=== PATIENT | female | born 1950 | race Caucasian/White ===

== ENCOUNTER 2019-05-29 10:05 | Inpatient (IN) | payer MEDICARE, MEDICAID ==
[~2019-05-29] VITALS: Ht 154.9 cm; Wt 88.5 kg
--- NOTE | 2019-05-29 13:15 | NUR ---
ADMISSION NOTE: Patient brought to [facility] by [facility]. Patient is ambulatory on the unit. Skin check is done and she has a red spot on her upper abdomen where it appears she scratched. Patient is illogical, becomes agitated quickly, slightly pressured speech. In shower doing skin check with Henok and patient starts telling us that she cannot have any more ECT because she is not a drug addict and you cannot get ECT without being a drug addict. When informed that she do not do ECT at this facility she states that we have one in the basement. 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 Upon further questioning, patient states that she had a bee sting. Patient states that she has had so many ECTs that she cannot remember anything. Patient rocks back and forth while she is in her room. Patient is tangential, illogical, flight of ideas, paranoia. Pt. speaks rapidly and has to be interrupted to ask another question. Pt. will not discuss prior suicide attempts or make any statements that will be "used against her later". Patient denies any physical ailments or history.
[2019-05-29] MEDS ORDERED: magnesium hydroxide 30ml (MOM) UD suspension PO PRN (15:55)
[2019-05-29] MEDS ORDERED: acetaminophen 325mg tablet PO PRN (15:55)
[2019-05-29] MEDS ORDERED: loperamide 2mg capsule PO PRN (15:55)
[2019-05-29 17:28] VITALS: BP 145/84
[2019-05-29] MEDS ORDERED: NO HOME MEDS BLADIN (17:55)
[2019-05-29 20:48] VITALS: BP 151/78
--- NOTE | 2019-05-30 01:28 | NUR ---
Nursing Progress Note Legal hold: 5150 Client on voluntary/involuntary status for being gravely disabled Report received from nurse with use of Rodrigo TRIVEDI RN. Why are they here: The patient was admitted from [facility] on a 5150 for gravely disabled. She was initially taken into [facility] crisis because she been becoming increasing unmanageable at home because of her psychotic symptoms. She was barricading the doors. She thought the water was being poisoned. She has been off her psychiatric medications for the past year. She was becoming agitated and abusive towards her daughter. The patient's daughter believed she could not provide the level of care the patient needed. She has a history of schizophrenia since her early 20s. She has been conserved in the past and has had numerous prior psychiatric hospitalizations. Assessment What has happened this shift: The patient was observed up in the dining room and talking rapidly with female peer but made no sense. During the evening assessment she was rocking back and forth rapidly. Her replies to the assessment questions were rapid and very tangential and frequently did not correspond to what was being asked. She denies hearing voices and stated, "It's more of a humming of the wind. I don't know how to describe it. Some areas of my town have gusting winds" When asked if she felt people were watching her at home she stated, "randy" but the rest of her reply was incongruent to what was asked. Her anxiety level appeared to be high but she adamantly refused any medications. S/I, H/I: Denies A/VH: Appears distracted. Sleep: ADL's: Needs prompting Group attendance: NA Were meds taken: NO Any med S/E: NA Mental Status Exam Appearance: Appeared clean and her stated age. She was dressed in green scrubs Eye contact: Intermittent Behavior: Disorganized Speech: very disorganized and tangential, rapid, hyper verbal Mood: anxious Affect: blunted Thought process: Disorganized, delusional Thought Content: Bizarre and difficult to follow what she is trying to relate Cognition: impaired Insight: Poor Judgment: Poor Interventions PRN's used: Refused Therapeutic interventions: One to one with the patient to assess severity of thought disorder and build therapeutic relationship. Encouraged her to take medications. She remains on q 15 minute safety checks Restraints/seclusion/emergency medication: Justification of Continued Inpatient Treatment: The patient remains very thought disordered and has poor insight into her need for treatment and medications. She remains gravely disabled.
[2019-05-30 08:00] VITALS: BP 121/42
--- NOTE | 2019-05-30 16:21 | NUR ---
Nursing Progress Note Legal hold: 5150 Client on voluntary/involuntary status for being gravely disabled Report received from nurse with use of Jamia TRIVEDI RN. Why are they here: The patient was admitted from [facility] on a 5150 for gravely disabled. She was initially taken into [facility] crisis because she been becoming increasing unmanageable at home because of her psychotic symptoms. She was barricading the doors. She thought the water was being poisoned. She has been off her psychiatric medications for the past year. She was becoming agitated and abusive towards her daughter. The patient's daughter believed she could not provide the level of care the patient needed. She has a history of schizophrenia since her early 20s. She has been conserved in the past and has had numerous prior psychiatric hospitalizations. Assessment What has happened this shift: The patient was awake at change of shift. She got up to the group room and having coffee sitting quietly with others, she suddenly stood up and with both hands angrily "flipped off" the entire room muttering something incoherent to herself. She went to her room and was sitting on bed. She later came back and ate breakfast without incident. Twice refused all blood draws stating, "all the blood is in my chart you can get it from there." She has pressured rapid tangential speech and loose associations. Is able to function on unit by coping skills of isolating to room and rocking back and forth when becomes overwhelmed. S/I, H/I: Denies A/VH: Appears distracted. Sleep:None ADL's: Needs prompting Group attendance: yes tried Were meds taken: No orders, no prn's needed Any med S/E: NA Mental Status Exam Appearance: Appeared clean and her stated age. She was dressed in green scrubs Eye contact: Intermittent Behavior: Disorganized Speech: very disorganized and tangential, rapid, hyper verbal Mood: anxious Affect: constricted Thought process: Disorganized Thought Content: Bizarre and difficult to follow what she is trying to relate Cognition: impaired Insight: Poor Judgment: Poor Interventions PRN's used: None Therapeutic interventions: One to one with the patient to assess severity of thought disorder and build therapeutic relationship. Encouraged her to take medications. She remains on q 15 minute safety checks Restraints/seclusion/emergency medication: Justification of Continued Inpatient Treatment: The patient remains very thought disordered and has poor insight into her need for treatment and medications. She remains gravely disabled.
--- NOTE | 2019-05-30 22:00 | NUR ---
Nursing Progress Note Legal hold: 5150 Client on voluntary/involuntary status for being gravely disabled Report received from nurse with use of Rick TRIVEDI RN. Why are they here: The patient was admitted from [facility] on a 5150 for gravely disabled. She was initially taken into [facility] crisis because she been becoming increasing unmanageable at home because of her psychotic symptoms. She was barricading the doors. She thought the water was being poisoned. She has been off her psychiatric medications for the past year. She was becoming agitated and abusive towards her daughter. The patient's daughter believed she could not provide the level of care the patient needed. She has a history of schizophrenia since her early 20s. She has been conserved in the past and has had numerous prior psychiatric hospitalizations. Assessment What has happened this shift: Patient awake at change of shift, walking the grace talking about random things such as the kitchen workers and then moved on to the security guards as she walks by people she never stopped and talked to people directly just made comments as she walked by. She is cooperative for her assessment but refuses her BP being taken saying "They take it everyday, they don't need it." She also reports that it squeezes her arm to tight and she does not like it. 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 She is difficult to keep on topic. Patient had no evening medications. She remained in her room in bed the remainder of the evening. S/I, H/I: Denies A/VH: Appears distracted. Sleep: None ADL's: Needs prompting Group attendance: No groups this shift Were meds taken: No orders, no prn's needed Any med S/E: NA Mental Status Exam Appearance: Clean and well groomed Eye contact: Direct Behavior: Disorganized Speech: Disorganized and tangential, rapid, hyper verbal Mood: Pleasant, friendly Affect: Congruent to mood Thought process: Disorganized Thought Content: Tangential, loose associations, difficult to keep on topic Cognition: Impaired Insight: Poor Judgment: Poor Interventions PRN's used: None Therapeutic interventions: 1:1 with the patient to assess severity of thought disorder and build therapeutic relationship. Encouraged her to take medications. She remains on q 15 minute safety checks Restraints/seclusion/emergency medication: Justification of Continued Inpatient Treatment: The patient remains very thought disordered and has poor insight into her need for treatment and medications. She remains gravely disabled.
[2019-05-31] MEDS: acetaminophen 325mg tablet PO PRN (01:51)
[2019-05-31 08:15] LABS: BASOPHILS % (AUTO) 0.6 % (0-1); EOSINOPHILS # (AUTO) 0.2 X10'3 (0-0.9); HEMATOCRIT 43.5 % (35.0-45.0); HEMOGLOBIN 14.8 g/dl (12.0-16.0); LYMPHOCYTES # (AUTO) 2.6 X10'3 (1.1-4.8); LYMPHOCYTES % (AUTO) 40.6 % (21-51); MEAN CORPUSCULAR HEMOGLOBIN 29.2 PG (27.0-31.0); MEAN CORPUSCULAR HGB CONC 34.1 g/dL (33.0-36.5); MEAN CORPUSCULAR VOLUME 85.7 FL (78-98); MEAN PLATELET VOLUME 9.8 FL (7.4-10.4); MONOCYTES # (AUTO) 0.4 X10'3 (0-0.9); MONOCYTES % (AUTO) 6.5 % (2-12); NEUTROPHILS # (AUTO) 3.2 X10'3 (1.8-7.7); NEUTROPHILS % (AUTO) 49.3 % (42-75); PLATELET COUNT 184 X10'3 (140-440); RED BLOOD COUNT 5.07 X10'6 (4.20-5.60); RED CELL DISTRIBUTION WIDTH 13.3 % (11.5-14.5); WHITE BLOOD COUNT 6.5 X10'3 (4.5-11.0)
[2019-05-31 08:37] LABS: ALANINE AMINOTRANSFERASE 59 U/L (12-78); ALBUMIN 3.8 G/DL (3.4-5.0); ALKALINE PHOSPHATASE 65 IU/L (46-116); ANION GAP 5 (8-16); ASPARTATE AMINO TRANSFERASE 26 U/L (10-37); BILIRUBIN,TOTAL 0.5 MG/DL (0.1-1.0); BLOOD UREA NITROGEN 13 MG/DL (7-18); BUN/CREATININE RATIO 16.9 (6.6-38.0); CALCIUM 8.8 MG/DL (8.5-10.1); CHLORIDE 106 MMOL/L (99-107); CHOL/HDL RATIO 4.3 (0.00-4.99); CHOLESTEROL 208 MG/DL (0-200); CREATININE 0.77 MG/DL (0.40-0.90); GLUCOSE 118 MG/DL (70-104); HDL CHOLESTEROL 48 MG/DL (35-60); LDL CHOLESTEROL 143 MG/DL (50-100); POTASSIUM 3.9 MMOL/L (3.5-5.1); SODIUM 140 MMOL/L (135-145); TOTAL CARBON DIOXIDE 29.1 MMOL/L (24-32); TOTAL PROTEIN 7.7 G/DL (6.4-8.2); TRIGLYCERIDES 130 MG/DL (20-135); eGFR 75 ML/MIN
--- NOTE | 2019-05-31 08:37 | NUR ---
Met with Ct to complete Psychosocial assessment. Ct was disorganized and circumstantial. She was a poor historian. She was cooperative. She reported she wants to return home to her daughter's house in [place]. MARIO Blue Lic # [id number] Addendum: 05/31/19 at 0838 by Stacy Doherty SS Amended: Links added.
[2019-05-31 08:39] LABS: HEMOGLOBIN A1C 5.7 % (4.5-6.2)
--- NOTE | 2019-05-31 11:13 | NUR ---
Sandra from [facility] (ph# [phone]) called for an update on Ct. She was unable to provide any information on Ct's pervious medications. She did report that Ct was going to [facility] in 2017, and did not have records from there. Spoke to Linda's daughter, Mary Jo (ph# [phone], [phone]). Mary Jo reported Ct had been on the following medications at one point in time: lorazapam, haldol, invega, risperdal, benzotropine, and prilosec. She reported she had another list filed away and policy writer could call her back for that list. Attempted to reach her later and both numbers rang without an answer or voicemail. MARIO Blue Lic# [id number]
--- NOTE | 2019-05-31 15:01 | NUR ---
Nursing Progress Note Legal hold: 5150 Client on voluntary/involuntary status for being gravely disabled Report received from nurse with use of SBAR. Why are they here: The patient was admitted from [facility] on a 5150 for gravely disabled. She was initially taken into [facility] crisis because she been becoming increasing unmanageable at home because of her psychotic symptoms. She was barricading the doors. She thought the water was being poisoned. She has been off her psychiatric medications for the past year. She was becoming agitated and abusive towards her daughter. The patient's daughter believed she could not provide the level of care the patient needed. She has a history of schizophrenia since her early 20s. She has been conserved in the past and has had numerous prior psychiatric hospitalizations. Assessment What has happened this shift: Received Pt asleep in bed w/o distress at beginning of shift. Pt got up and went to the group room and had coffee sitting quietly with others. Pt ate breakfast without incident. She made comments about the food not being too good and asked if we could get food from somewhere else. Pt makes loose associations and statements that have no bearing on a question asked of her. Isolated to room for a good portion of the day, yet comes out for meals and snacks. Guarded and resistive when limits set or something is asked of her. Wanted to look at the computer screen when I asked a question in a paranoid manner, as if wanting to see what has been written about her. S/I, H/I: Denies A/VH: Appears distracted. Sleep:None ADL's: Needs prompting Group attendance: yes tried Were meds taken: No standing meds: no prn's needed Any med S/E: NA Mental Status Exam Appearance: Appeared clean and her stated age. She was dressed in green scrubs Eye contact: Intermittent Behavior: Disorganized Speech: very disorganized and tangential Mood: anxious Affect: constricted Thought process: Disorganized Thought Content: Bizarre and difficult to follow Cognition: impaired Insight: Poor Judgment: Poor Interventions PRN's used: None Therapeutic interventions: One to one with the patient to assess severity of thought disorder and build therapeutic relationship. Encouraged her to take medications. She remains on q 15 minute safety checks Restraints/seclusion/emergency medication: Justification of Continued Inpatient Treatment: The patient remains very thought disordered and has poor insight into her need for treatment and medications. She remains gravely disabled.
[2019-05-31 19:00] VITALS: BP 109/79
--- NOTE | 2019-05-31 23:35 | NUR ---
Nursing Progress Note Legal hold: 5150 Client on voluntary/involuntary status for being gravely disabled Report received from nurse with use of Agus TRIVEDI RN. Why are they here: The patient was admitted from [facility] on a 5150 for gravely disabled. She was initially taken into [facility] crisis because she been becoming increasing unmanageable at home because of her psychotic symptoms. She was barricading the doors. She thought the water was being poisoned. She has been off her psychiatric medications for the past year. She was becoming agitated and abusive towards her daughter. The patient's daughter believed she could not provide the level of care the patient needed. She has a history of schizophrenia since her early 20s. She has been conserved in the past and has had numerous prior psychiatric hospitalizations. Assessment What has happened this shift: Patient in her room at change of shift, she is isolative this evening, and heard talking to herself. She is resistant to care this evening refusing to allow staff to listen to heart and lungs, and refused to answer questions. Patient threw arms in the air and stated "no more funny business tonight". She also stated "you guys don't need to assess me 6 times a day". She then began making delusional statements irritably, and asked this singer songwriter to leave. No medications ordered. Patient remained in her room and isolative the remainder of the evening. S/I, H/I: Refused to answer questions. A/VH: Appears as if she is RIS. Sleep: See sleep assessment. ADL's: Needs prompting Group attendance: No groups this shift Were meds taken: No orders, no prn's needed Any med S/E: NA Mental Status Exam Appearance: Clean and well groomed Eye contact: Direct Behavior: Disorganized, isolative Speech: Disorganized and tangential, rapid, hyper verbal Mood: Irritable, agitated, resistant to care Affect: Congruent to mood Thought process: Disorganized, paranoid Thought Content: Tangential, loose associations, difficult to keep on topic Cognition: Impaired Insight: Poor Judgment: Poor Interventions PRN's used: None Therapeutic interventions: 1:1 with the patient to assess severity of thought disorder and build therapeutic relationship. Encouraged her to take medications. She remains on q 15 minute safety checks Restraints/seclusion/emergency medication: Justification of Continued Inpatient Treatment: The patient remains very thought disordered and has poor insight into her need for treatment and medications. She remains gravely disabled.
[2019-06-01 07:51] VITALS: BP 146/87
[2019-06-01] MEDS: nitrofuran/nitrofuran macrocrysal 100 MG capsule PO SCH ×2 (08:07→17:33)
--- NOTE | 2019-06-01 15:52 | NUR ---
NURSING PROGRESS NOTE Legal hold: 5250 Client on voluntary/involuntary status for being gravely disabled Report received from nurse with use of Elizabeth TRIVEDI RN. Why are they here: The patient was admitted from [facility] on a 5150 for gravely disabled. She was initially taken into [facility] crisis because she been becoming increasing unmanageable at home because of her psychotic symptoms. She was barricading the doors. She thought the water was being poisoned. She has been off her psychiatric medications for the past year. She was becoming agitated and abusive towards her daughter. The patient's daughter believed she could not provide the level of care the patient needed. She has a history of schizophrenia since her early 20s. She has been conserved in the past and has had numerous prior psychiatric hospitalizations. Assessment What has happened this shift: The patient was asleep at change of shift. She was able to understand she has a UTI and agreed to take Macrobid, still refusing all other medications. She has pressured rapid tangential speech and loose associations. Is able to function on unit by coping skills of isolating to room and rocking back and forth when becomes overwhelmed. Vague awareness of why she is here. S/I, H/I: Denies A/VH: Denies Sleep: napped ADL's: Needs prompting Group attendance: yes tried Were meds taken: Took Macrobid Any med S/E: NA Mental Status Exam Appearance: Appeared clean and her stated age. She was dressed in green scrubs Eye contact: Intermittent Behavior: Disorganized Speech: very disorganized and tangential, rapid, hyper verbal Mood: anxious Affect: constricted Thought process: Disorganized Thought Content: Bizarre and difficult to follow what she is trying to relate Cognition: impaired Insight: Poor Judgment: Poor Interventions PRN's used: None Therapeutic interventions: One to one with the patient to assess severity of thought disorder and build therapeutic relationship. Encouraged her to take medications. She remains on q 15 minute safety checks Restraints/seclusion/emergency medication: Justification of Continued Inpatient Treatment: The patient remains very thought disordered and has poor insight into her need for treatment and medications. She remains gravely disabled.
[2019-06-01 19:00] VITALS: BP 116/57
[2019-06-01] MEDS: mag hydrox/Alum hydrox/simeth 30ml oral suspension PO PRN (21:22)
--- NOTE | 2019-06-02 03:38 | NUR ---
Nursing Progress Note Legal hold: 5250 Client on voluntary/involuntary status for being gravely disabled Report received from nurse with use of Rick TRIVEDI RN. Why are they here: The patient was admitted from [facility] on a 5150 for gravely disabled. She was initially taken into [facility] crisis because she been becoming increasing unmanageable at home because of her psychotic symptoms. She was barricading the doors. She thought the water was being poisoned. She has been off her psychiatric medications for the past year. She was becoming agitated and abusive towards her daughter. The patient's daughter believed she could not provide the level of care the patient needed. She has a history of schizophrenia since her early 20s. She has been conserved in the past and has had numerous prior psychiatric hospitalizations. Assessment What has happened this shift: Patient in her room at change of shift, she gets up occasionally walks the unit or watches TV briefly and goes back to her room. She keeps to herself and does not interact with others. She is cooperative and friendly this evening for a 1:1 assessment. She is delusional and difficult to keep on topic, when asking about UTI symptoms patient began talking about other topics. Brought patient back to topic of UTI and antibiotics she reported "Turmoil" in between her stomach and heart (she pointed to her stomach and heart) and she stated it was because of the antibiotic doing things to her. After much discussion and questions was able to determine the patient had indigestion. Patient was agreeable to taking Maalox once she was educated on medication. Maalox administered with good effect. Patient remained in her room the rest of the evening. S/I, H/I: Denies A/VH: Appears internally preoccupied Sleep: See sleep assessment. ADL's: Needs prompting Group attendance: No groups this shift Were meds taken: Yes Any med S/E: NA Mental Status Exam Appearance: Clean and well groomed Eye contact: Direct Behavior: Disorganized, isolative Speech: Disorganized and tangential, hyper verbal Mood: Calm Affect: Congruent to mood Thought process: Disorganized, paranoid Thought Content: Tangential, loose associations, difficult to keep on topic Cognition: Impaired Insight: Poor Judgment: Poor Interventions PRN's used: Maalox Therapeutic interventions: 1:1 with the patient to assess severity of thought disorder and build therapeutic relationship. Encouraged her to take medications. She remains on q 15 minute safety checks Restraints/seclusion/emergency medication: Justification of Continued Inpatient Treatment: The patient remains very thought disordered and has poor insight into her need for treatment and medications. She remains gravely disabled.
[2019-06-02 08:00] VITALS: BP 121/65
[2019-06-02 08:10] VITALS: BP 121/65
[2019-06-02] MEDS: nitrofuran/nitrofuran macrocrysal 100 MG capsule PO SCH ×2 (08:25→17:43)
--- NOTE | 2019-06-02 16:03 | NUR ---
Nursing Progress Note Legal hold: 5250 Client on voluntary/involuntary status for being gravely disabled Report received from nurse with use of SBAR, Isa Ellis RN. Why are they here: The patient was admitted from [facility] on a 5150 for gravely disabled. She was initially taken into [facility] Health crisis because she been becoming increasing unmanageable at home because of her psychotic symptoms. She was barricading the doors. She thought the water was being poisoned. She has been off her psychiatric medications for the past year. She was becoming agitated and abusive towards her daughter. The patient's daughter believed she could not provide the level of care the patient needed. She has a history of schizophrenia since her early 20s. She has been conserved in the past and has had numerous prior psychiatric hospitalizations. Assessment What has happened this shift: Pt asleep at change of shift. Met with RN for 1:1 assessment at the bedside after breakfast. Pt presents with a disorganized thought process with loose associations. Answers questions inappropriately; when asked mental status exam questions she responds by talking about Spok and a gisela pet. When asked why she's here, she refuses to answer, stating she has been asked that too many times and "Don't you guys talk to each other?" When asked about A/H, she stated "don't we all hear voices?" and stated medications don't work and she just needs to use coping skills. Pt calm and cooperative throughout the day, visible on the unit, attends groups, socializes with others. S/I, H/I: Denies A/VH: "don't we all hear voices?" Sleep: 7.25 hours last NOC. No complaints ADL's: Showered Group attendance: yes Were meds taken: Takes antibiotic, but states that she doesn't want antipsychotic medication because "it doesn't work... you just have to use coping skills" Any med S/E: none Mental Status Exam Appearance: Clean and well groomed Eye contact: Direct Behavior: mostly cooperative, but somewhat suspicious of questions Speech: tangential, hyperverbal, mumbles Mood: No complaints, "good" Affect: Congruent to mood Thought process: Disorganized Thought Content: loose associations, talking about a gisela pet, goblins, and Spok Cognition: Impaired Insight: Poor Judgment: Poor Interventions PRN's used: None Therapeutic interventions: 1:1 with the patient to assess severity of thought disorder and build therapeutic relationship. Provided medication education and encouraged to start antipsychotics. She remains on q 15 minute safety checks Restraints/seclusion/emergency medication: N/A Justification of Continued Inpatient Treatment: The patient remains gravely disabled with thought disorder, and has poor insight into her need for treatment and medications.
[2019-06-02 19:21] VITALS: BP 136/70
[2019-06-02] MEDS: acetaminophen 325mg tablet PO PRN (21:21)
--- NOTE | 2019-06-02 22:58 | NUR ---
Nursing Progress Note Legal hold: 5250 Client on involuntary status for being gravely disabled Report received from nurse with use of Rick TRIVEDI RN. Why are they here: The patient was admitted from [facility] on a 5150 for gravely disabled. She was initially taken into [facility] Mental Health crisis because she been becoming increasing unmanageable at home because of her psychotic symptoms. She was barricading the doors. She thought the water was being poisoned. She has been off her psychiatric medications for the past year. She was becoming agitated and abusive towards her daughter. The patient's daughter believed she could not provide the level of care the patient needed. She has a history of schizophrenia since her early 20s. She has been conserved in the past and has had numerous prior psychiatric hospitalizations. Assessment What has happened this shift: Pt was in group room at change of shift coloring and interacting with peers. Pt states she is here to "relax, relieve stress" and then talks about the central heating at home. She reports the cental heating takes all of her air at home. Pts continues to have disorganized thinking talking about "my eyelids are very heavy." when asked about dinner. Pt was asked if she was tired and she replied "I dont know do you want me to come in here and do art or stay in my room?" Pt reports having a good appetite and ate a large snack in the evening. Pt is reluctant to use any medication stating she only wants an antibiotic for uti and tylenol for a SORIANO she is reporting tonight. Pt had tylenol and went to bed, changed into green scrubs and brushed her teeth at bedtime. S/I, H/I: Denies A/VH: doesnt answer, changes subject to another topic when asked. Sleep: states she is tired and wants to sleep. ADL's: independant Group attendance: yes Were meds taken: Pt reiterates that she only wants abx and tylenol Any med S/E: none Mental Status Exam Appearance: Clean and well groomed Eye contact: Direct Behavior: calm cooperative, but during conversation becomes defensive and argumentative about if she should attend group or stay in her room Speech: tangential, hyperverbal, mumbles Mood: pleasant calm Affect: wnl Thought process: Disorganized Thought Content: loose associations, air conditioning in her apartment at home to art therapy and being tired Cognition: Impaired Insight: Poor Judgment: Poor Interventions PRN's used: None Therapeutic interventions: 1:1 with the patient to assess severity of thought disorder and build therapeutic relationship. Provided medication education and encouraged to start antipsychotics. She remains on q 15 minute safety checks Restraints/seclusion/emergency medication: N/A Justification of Continued Inpatient Treatment: The patient remains gravely disabled with thought disorder, and has poor insight into her need for treatment and medications.
[2019-06-03 07:54] VITALS: BP 119/66
[2019-06-03] MEDS: nitrofuran/nitrofuran macrocrysal 100 MG capsule PO SCH ×2 (08:01→17:35)
--- NOTE | 2019-06-03 14:37 | NUR ---
Initial assessment: Noted that patient has history of thyroidectomy and TSH of 4.66, not currently taking any Synthroid; discussed with bedside RN to discuss with MD. Otherwise, patient has good appetite, eating 75-100% of regular diet. Will continue to follow. Recommend: 1. continue regular diet 2. bowel care as needed if constipation 3. weekly weights Addendum: 06/03/19 at [address] Amended: Links added.
--- NOTE | 2019-06-03 17:23 | NUR ---
Nursing Progress Note Legal hold: 5250 Client on involuntary status for being gravely disabled Report received from nurse with use of Huyen TRIVEDI RN. Why are they here: The patient was admitted from [facility] on a 5150 for gravely disabled. She was initially taken into [facility] Mental Health crisis because she been becoming increasing unmanageable at home because of her psychotic symptoms. She was barricading the doors. She thought the water was being poisoned. She has been off her psychiatric medications for the past year. She was becoming agitated and abusive towards her daughter. The patient's daughter believed she could not provide the level of care the patient needed. She has a history of schizophrenia since her early 20s. She has been conserved in the past and has had numerous prior psychiatric hospitalizations. Assessment What has happened this shift: Pt. is asleep at start of shift. Pt. ate breakfast in community room and took her antibiotic. 1:1 done at bedside. Pt. denies SI/HI, A/V H. Pt. is hyperverbal, disorganized and tangential. When asked about her feelings, pt. changed subject to fitness and weightloss, than started talking about AA and substance abuse treatment, and then bipolar and schizophrenia and a book about mental illness. Pt. focused on seeing her patient advocate. Pt. advocate came in the afternoon however, when pt. advocate met with pt. pt. became enraged, tearing up papers and storming out of meeting. Pt. was able to calm herself down. Pt.'s TSH level elevated at 4.66, RN informed hospitalist, no further action to be taken at this time. S/I, H/I: Denies A/VH: Denies, but appears to be responding to internal stimuli. Sleep: Pt. napped x2 ADL's: independant Group attendance: No Were meds taken: Yes Any med S/E: none Mental Status Exam Appearance: Clean and well groomed Eye contact: Direct Behavior: Labile. Pt. calm but had a moment of explosiveness when she met with her pt. advocate, tearing up papers and storming out of the room. Speech: tangential, hyperverbal, mumbles Mood: pleasant, calm Affect: wnl Thought process: Disorganized Thought Content: Focused on her pt. advocate. Cognition: A&Ox4 Insight: Poor Judgment: Poor Interventions PRN's used: None Therapeutic interventions: 1:1 with the patient to assess severity of thought disorder and build therapeutic relationship. Provided medication education and encouraged to start antipsychotics. She remains on q 15 minute safety checks Restraints/seclusion/emergency medication: N/A Justification of Continued Inpatient Treatment: The patient remains gravely disabled with thought disorder, and has poor insight into her need for treatment and medications.
--- NOTE | 2019-06-03 17:24 | NUR ---
Nursing Progress Note: Legal hold: Voluntary Report received from nurse with use of SBAR: TANYA Matson Why are they here: Pt overdosed on 40 tabs of Klonopin and 25 tabs of Seroquel 100 mg in a suicide attempt. She did not tell her sister what she did until the next day when she was taken to [facility]. Pt has a Hx of 2 other recent serious suicide attempts. She attempted suicide the first time by cutting her throat and her thigh and the second time by driving her car into the [facility]. Assessment What has happened this shift: Pt. asleep at start of shift. Pt. up for breakfast and ate in the community room. Pt. took all meds, reports her mood is "okay". Pt. denies SI/HI, A/V H. Pt. reports she is looking forward to her discharge tomorrow. Pt. reports feeling anxious about her discharge and given atarax with good effect. Pt. given flexaril for back pain with good effect. Pt. attending groups and interacting appropriately with other patients and staff. S/I, H/I: denies A/VH: denies Sleep: Napped x1 ADL's: Independent. Group attendance: yes Were meds taken: yes Any med S/E: None reported or observed Mental Status Exam Appearance: Clean, hair is brushed, wearing green scrubs Eye contact: direct Behavior: cooperative, conversational Speech: Normal volume, rate and rhythm Mood: euthymic but a bit anxious about discharge Affect: congruent with mood Thought process: Linear, goal-directed Thought Content: focused on discharge Cognition: A/O X 4 Insight: Fair Judgment: Fair Interventions PRN's used: Atarax, Flexiril Therapeutic interventions: 1:1 assessment, active listening, therapeutic conversation, medication administration/education/monitoring, teaching, encouragement to attend groups, Q 15 min safety checks. Restraints/seclusion/emergency medication: None Justification of Continued Inpatient Treatment: Interrupt current crisis, maintain safety of patient. Continued therapeutic support and medication management needed to provide stabilization, prevent decompensation, decreasing risk to patient and readmittance.
[2019-06-03 19:46] VITALS: BP 147/77
[2019-06-03] MEDS: acetaminophen 325mg tablet PO PRN (20:54)
--- NOTE | 2019-06-03 22:53 | NUR ---
Nursing Progress Note Legal hold: 5250 Client on involuntary status for: GD Report received from nurse with use of Loretta TRIVEDI RN. Why are they here: The patient was admitted from [facility] on a 5150 for gravely disabled. She was initially taken into [facility] Mental Health crisis because she been becoming increasing unmanageable at home because of her psychotic symptoms. She was barricading the doors. She thought the water was being poisoned. She has been off her psychiatric medications for the past year. She was becoming agitated and abusive towards her daughter. The patient's daughter believed she could not provide the level of care the patient needed. She has a history of schizophrenia since her early 20s. She has been conserved in the past and has had numerous prior psychiatric hospitalizations. Assessment What has happened this shift: Pt in room rocking at change of shift. During 1:1, pt states that she needs a face cream "It's an antibiotic, it keeps my day nice and even. You can talk to the MD." Pt then continues to say that "it's been eventful, you know how it goes. Lots to keep up on. I just need to call my daughter but it just kept ringing." Pt said she would like a shower in the morning and that she won't be taking anything but would like Tylenol for her headache. After Tylenol administration, closer to bedtime per the pt's request, she attempted to reach her daughter via telephone. Pt became visibly upset that it went to voicemail, stomping her feet while yelling "It's just the 5250 keeping me here without any contact with my family! Just keeping me from them!" then went to her room. This RN and the charge followed the pt shortly thereafter; she was in bed, visibly upset and mumbling to herself. Discussed how we could help the pt feel better and she started to calm down once we told her we would look in her chart to locate her daughter's number. Pt was agreeable, and the lost charge card clerk was able to contact the daughter, who then spoke with the pt. Pt went to sleep shortly after the phone call was finished. S/I, H/I: Denies A/VH: Would not answer Sleep: See Sleep Assessment ADL's: Independent Group attendance: N/A Were meds taken: Pt states she will only take abx and tylenol Any med S/E: None Mental Status Exam Appearance: Clean and well groomed wearing unit scrubs and nonskid socks Eye contact: Direct Behavior: Cooperative, One outburst as described in note but able to redirect and deescalate Speech: Soft, Hyperverbal Mood: Restless, "Fine" Affect: Animated Thought process: Disorganized Thought Content: Needing her daughters phone number, wanting to take only specific meds Cognition: Impaired Insight: Poor Judgment: Poor Interventions PRN's used: Tylenol Therapeutic interventions: 1:1 with the patient to assess severity of thought disorder and build therapeutic relationship. Provided medication education and encouraged to start antipsychotics. She remains on q 15 minute safety checks Restraints/seclusion/emergency medication: N/A Justification of Continued Inpatient Treatment: The patient remains gravely disabled with thought disorder, and has poor insight into her need for treatment and medications.
[2019-06-04 07:30] VITALS: BP 117/73
[2019-06-04] MEDS: nitrofuran/nitrofuran macrocrysal 100 MG capsule PO SCH ×2 (07:58→18:00)
--- NOTE | 2019-06-04 17:15 | NUR ---
Nursing Progress Note Legal hold: 5250 Client on involuntary status for: GD Report received from nurse with use of Huyen TRIVEDI RN. Why are they here: The patient was admitted from [facility] on a 5150 for gravely disabled. She was initially taken into [facility] Mental Health crisis because she been becoming increasing unmanageable at home because of her psychotic symptoms. She was barricading the doors. She thought the water was being poisoned. She has been off her psychiatric medications for the past year. She was becoming agitated and abusive towards her daughter. The patient's daughter believed she could not provide the level of care the patient needed. She has a history of schizophrenia since her early 20s. She has been conserved in the past and has had numerous prior psychiatric hospitalizations. Assessment What has happened this shift: Pt. asleep at start of shift. Pt. ate breakfast in community room and took medications. 1:1 done at bedside. Pt. continues to have hypervebal, pressured speech with d/o, tagnetial thinking. Pt. denies SI/HI, A/V H. When asked about cricumstances of her admission pt. changed the subject of wanting to read a book on substance abuse and then started to talk about diet, and then the bennett of the elite that were holding her here. Pt. had no out-bursts this shfit. However, pt. is very intense, when walking she walks very fast, when getting up from a bed or the chair, pt. jumps up. Pt. went to all groups. Pt. given ativan 1mg po for anxiety. S/I, H/I: Denies A/VH: Denies but appears to be responding to internal stimuli. Sleep: Pt. napped x1 on day shift. ADL's: Independent Group attendance: Yes Were meds taken: Yes Any med S/E: No Mental Status Exam Appearance: Clean and well groomed wearing unit scrubs and nonskid socks Eye contact: Direct Behavior: Cooperative, attending groups, quick movements whether walking the hallway or getting out of bed. Speech: Soft, Hyperverbal, pressured Mood: Pt. states, "good". Affect: Animated Thought process: Disorganized, tangential Thought Content: Pt. focused on a substance abuse treatment book. Cognition: A&Ox3 (Not to circumstance) Insight: Poor Judgment: Poor Interventions PRN's used: Ativan 1mg po Therapeutic interventions: 1:1 with the patient to assess severity of thought disorder and build therapeutic relationship. Provided medication education and encouraged to start antipsychotics. She remains on q 15 minute safety checks Restraints/seclusion/emergency medication: N/A Justification of Continued Inpatient Treatment: The patient remains gravely disabled with thought disorder, and has poor insight into her need for treatment and medications.
[2019-06-04] MEDS: LORazepam 1 MG tablet PO PRN (18:07)
[2019-06-04] MEDS ORDERED: zolpidem 5mg tablet PO ONE (20:05)
[2019-06-04 20:13] VITALS: BP 138/63
--- NOTE | 2019-06-05 02:18 | NUR ---
Nursing Progress Note Legal hold: 5250 Client on involuntary status for: GD Report received from nurse with use of Loretta TRIVEDI RN. Why are they here: The patient was admitted from [facility] on a 5150 for gravely disabled. She was initially taken into [facility] Mental Health crisis because she been becoming increasing unmanageable at home because of her psychotic symptoms. She was barricading the doors. She thought the water was being poisoned. She has been off her psychiatric medications for the past year. She was becoming agitated and abusive towards her daughter. The patient's daughter believed she could not provide the level of care the patient needed. She has a history of schizophrenia since her early 20s. She has been conserved in the past and has had numerous prior psychiatric hospitalizations. Assessment What has happened this shift: The patient was seen lying on her bed. She is alert and cooperative. The patient uses loose associations and word salad. The patient was unable to talk about her day, "Mom could be a diversity of mothers, they usually have someone on the piano." The patient spent the evening in her room. She did come to nurses station and said she couldn't sleep. She was told that the doctor could be called for something, and she said, "as long as it's not antipsychotic, I won't take that." An order was obtained for Ambien 5mg, and the patient took the pill. Seh has been asleep since. S/I, H/I: Denies A/VH: Denies Sleep: See Sleep Assessment ADL's: Independent Group attendance: No groups at night Were meds taken: The patient took PRN Ambien for sleep. Any med S/E: None Mental Status Exam Appearance: Clean and well groomed wearing unit scrubs and nonskid socks Eye contact: Poor Behavior: Cooperative, isolative Speech: Soft, Hyperverbal, mumbles Mood: "Fine fine fine" Affect: Blunted Thought process: Disorganized Thought Content: "I won't take antipsychotic." Cognition: Impaired Insight: Poor Judgment: Poor Interventions PRN's used: Ambien Therapeutic interventions: 1:1 with the patient to assess severity of thought disorder and build therapeutic relationship. Provided medication education and encouraged to start antipsychotics. She remains on q 15 minute safety checks Restraints/seclusion/emergency medication: N/A Justification of Continued Inpatient Treatment: The patient remains gravely disabled with thought disorder, and has poor insight into her need for treatment and medications.
[2019-06-05] MEDS: nitrofuran/nitrofuran macrocrysal 100 MG capsule PO SCH ×2 (07:43→17:34)
[2019-06-05 08:00] VITALS: BP 116/57
--- NOTE | 2019-06-05 11:42 | NUR ---
Attempted to reach Linda's daughter, Mary Jo (ph# [phone], [phone]) to discuss discharge plan when Ct is ready. Unable to leave a message on both numbers. MARIO Blue Lic# [id number]
--- NOTE | 2019-06-05 17:15 | NUR ---
Nursing Progress Note Legal hold: 5249. Pt. lost Riese hearing on 06/05 Client on involuntary status for: GD Report received from nurse with use of Jamia TRIVEDI RN. Why are they here: The patient was admitted from [facility] on a 5150 for gravely disabled. She was initially taken into [facility] Mental Health crisis because she been becoming increasing unmanageable at home because of her psychotic symptoms. She was barricading the doors. She thought the water was being poisoned. She has been off her psychiatric medications for the past year. She was becoming agitated and abusive towards her daughter. The patient's daughter believed she could not provide the level of care the patient needed. She has a history of schizophrenia since her early 20s. She has been conserved in the past and has had numerous prior psychiatric hospitalizations. Assessment What has happened this shift: Pt. is alseep at start of shift. Pt. took medications. Pt. ate all meals in the community room. 1:1 done at bedside. Pt. denies SI/HI, VH, when asked if pt. hears voices, pt. responded, "Yes, I talk to my hands. I vent to them..." Then pt. started talking about the vents, and then electricty and power plants. Pt. has d/o, tangential thought process and loose associations. Pt. is hyperverbal, with pressured speech. Pt. moves very quickly when getting out of bed and when walking down the hallway. Pt. had Reise hearing this which she did not attend and she lost. Pt. became very agitated when director of public relations attempted to talk with her and pt. began yelling saying that she did not owe money to anyone. Pt. refused prn medication but Pt. eventually became re-directable. S/I, H/I: Denies A/VH: Pt. reports having conversation with her hand Sleep: Pt. napped x1 on day shift. ADL's: Independent Group attendance: No Were meds taken: Yes Any med S/E: No Mental Status Exam Appearance: Clean and well groomed wearing unit scrubs and nonskid socks Eye contact: Direct Behavior: Cooperative, attending groups, quick movements whether walking the hallway or getting out of bed. Speech: Soft, Hyperverbal, pressured Mood: anxious but also Euthymic and labile with explosive outbursts. Affect: flat Thought process: Disorganized, tangential, loose associations. Thought Content: Pt. insists she does not owe anyone money. Cognition: A&Ox3 (Not to circumstance) Insight: Poor Judgment: Poor Interventions PRN's used: None Therapeutic interventions: 1:1 with the patient to assess severity of thought disorder and build therapeutic relationship. Provided medication education and encouraged to start antipsychotics. She remains on q 15 minute safety checks Restraints/seclusion/emergency medication: N/A Justification of Continued Inpatient Treatment: The patient remains gravely disabled with thought disorder, and has poor insight into her need for treatment and medications
[2019-06-05] MEDS ORDERED: OLANZapine **IM** 10 mg inj. IM PRN (20:20)
[2019-06-05 20:28] VITALS: BP 131/75
[2019-06-05] MEDS ORDERED: OLANZapine 5mg rapidly disint. tablet PO SCH (21:00)
--- NOTE | 2019-06-06 03:05 | NUR ---
Nursing Progress Note: Legal hold: 5250 Client on involuntary status for GD Report received from nurse with use of SBAR: TANYA Burgos Why are they here: The patient was admitted from [facility] on a 5150 for gravely disabled. She was initially taken into [facility] crisis because she been becoming increasing unmanageable at home because of her psychotic symptoms. She was barricading the doors. She thought the water was being poisoned. Pt. has been off her psychiatric medications for the past year. She was becoming agitated and verbally abusive towards her daughter. Pt. has a history of schizophrenia since her early 20s. She has been conserved in the past and has had numerous prior psychiatric hospitalizations. Assessment What has happened this shift: Pt. laying in bed at the beginning of the shift, appears to be internally preoccupied at times and is observed to be talking to herself several times throughout the shift. Pt. requests to take a shower, and is able to do so independently after set-up provided by staff. After shower, pt. returned to bed and continued to isolate here throughout the shift. She is pleasant, however continues to bluntly and adamantly deny all mental lyubov s/s. She does present with paranoid delusions, and is hypervigilant of her environment. Pt. calls this promotion writer into her room and states with much concern, "There are medications in the bathroom garbage!" These 'medications' were determined to be empty soap/mouthwash containers, however pt. adamant that they should be taken out of her room. At , this promotion writer informed pt. that she would have to take ordered oral Zyprexa Scott r/t [facility]hon[facility] Hearing earlier today. Pt. became agitated and began yelling with a disorganized and tangental thought process. She agitatedly reported that she was not the right patient, it was the wrong ordering doctor, she had had Zyprexa before and it gave her a heart attack (per medical hx, pt. has no allergies and has never had a heart attack), and she has had multiple EEGs of her brain, ect. Security was called and pt. continued to refuse medication, and proceeded to talk over this promotion writer's education with pressured and hyperverbal speech. However, when presented with alternate IM injection and security at bedside, she then accepted the oral medication route. Afterwards, pt. stuck her tongue out at staff in an agitated way, and stated, "I'm going to robin all of you, now get out!" Medication observed to be dissolved on tongue, and pt. able to de-escalate herself and lay back in bed. She later requested to telephone her daughter with help from staff, however refused physical assessment. At approximately 2200, this promotion writer again assessed pt. who was wriggling in bed restlessly, she stated, "I'm fine. Now leave, I'm trying to rest." Pt. denied the need for an anxiolytic or sleep aide, and was able to fall asleep without issue. Will continue to monitor. S/I, H/I: Denies A/VH: Denies, however appears internally preoccupied and has been observed talking to herself several times throughout the shift Sleep: Pt. reports insomnia, and initially requests a sleeping aide, however she is able to fall asleep and remain asleep on her own. ADL's: Requires direction and prompting from staff Group attendance: Pt. does not attend HS snack Were meds taken: Pt. had Riese Hearing today and lost, she at first become agitated and adamantly refused ordered oral Zyprexa, however when presented with IM injection and security at bedside, she later accepted oral route. Any med S/E: None Mental Status Exam Appearance: Neat and appropriately dressed. Pt. was able to independently shower this shift Eye contact: Fair Behavior: Resistive to care, anxious, agitated, guarded, withdrawn, and isolative Speech: Hyperverbal and pressured when agitated, however minimal and blunt when discussing mental health issues. Mood: Labile Affect: Constricted Thought process: Tangental and disorganized Thought Content: Ongoing paranoid delusions with possible A/V/SORIANO Cognition: A&O to name only (unable to assess per pt. non-cooperative) Insight: Poor Judgment: Poor Interventions PRN's used: None Therapeutic interventions:Introduced self and established rapport, established contract for safety, provided clear and simple instructions, attempted to reorient to reality, monitored behaviors and need for interventions, provided education on Riese Hearing and medication, and maintained Q 15 min safety checks. Restraints/seclusion/emergency medication: N/A Justification of Continued Inpatient Treatment: Per MD, pt. continues to be gravely disabled, and requires medication adjustments and a safe and supportive environment.
--- NOTE | 2019-06-06 04:00 | NUR ---
Nursing Note: Pt. awoke and agitatedly paced down grace to nurses' station and then back to her room. When assessed by staff, pt. reported that she awoke fearing that the building was abandoned (her roommate was gone), and she was hearing noises in the acosta. She continued to be irritable and requested that [employer] paperwork be gone-over with her again, task completed by staff. Pt .then began loudly yelling/talking to herself in a tangental fashion, stated, "I am not a transvestite!" Pt. refused anxiolytic, stated, "Medications don't work for me!" She was successfully redirected by staff and educated that others are trying to sleep. Pt. laying her her bed quietly, will continue to monitor.
[2019-06-06] MEDS: nitrofuran/nitrofuran macrocrysal 100 MG capsule PO SCH ×2 (07:43→17:43)
[2019-06-06 08:00] VITALS: BP 91/46
--- NOTE | 2019-06-06 12:32 | NUR ---
Nursing Progress Note: Legal hold: 5250 Client on involuntary status for GD Report received from nurse with use of SBAR: TANYA Blandon Why are they here: The patient was admitted from [facility] on a 5150 for gravely disabled. She was initially taken into [facility] Mental Health crisis because she been becoming increasing unmanageable at home because of her psychotic symptoms. She was barricading the doors. She thought the water was being poisoned. Pt. has been off her psychiatric medications for the past year. She was becoming agitated and verbally abusive towards her daughter. Pt. has a history of schizophrenia since her early 20s. She has been conserved in the past and has had numerous prior psychiatric hospitalizations. Assessment What has happened this shift: Pt was cooperative with taking her ABX this morning. Initially when saw this RN approaching with a medicine cup said, "only at night time." Pt is riesed. Pt does not have scheduled psych meds in the morning. Pt is pleasant, friendly and talkative today though her conversation is difficult to follow. Pt has pressured, rambling speech and is tangential with some loose associations. When went to do a mental health assessment, pt was observed lying on her bed in her room talking to herself. Pt seemed surprised when this RN entered the room and began to speak to her. Pt asked, "Oh, you can see me? I'm not invisible?" Pt denied depression and SI. When asked her about voices, she replied, "never, that hasn't been written in the Bible yet." When asked if she ever saw people or things that may not actually be present, she again answered with the same response, "never, that hasn't been written in the Bible yet." Pt then began speaking about nests, made a statement about being out of the nest on the asphalt. Pt spoke about visiting [facility], then switched to talking about volcanos and [facility] and the jeny cloud that resulted from it. She began speaking about being unable to stay safe even in the cities as it would come through there too. Pt seemed to indicate that she would help if she could, "I would do the cooking but they don't want me in the kitchen in triage." When asked about the date she said, "the " (only one day off.) When asked about the month pt rambled, "not November, not December....it's May." Pt was able to correctly stated that the year was 2018 though it was interspersed amongst other nonsensical rambling. [facility] S/I, H/I: "never." A/VH: Pt denies, though appears to be responding to internal stimuli. Sleep: Per noc shift report, pt has broken sleep. ADL's: Independent with prompts Group attendance: Yes Were meds taken: Yes but only PO Macrobid, no psych meds ordered for the morning. Any med S/E: None noted or reported Mental Status Exam Appearance: Neat, clean Eye contact: good Behavior: pleasant, cooperative, appears to be responding to internal stimuli Speech: Pressured, hyperverbal Mood: Pleasant Affect: congruent Thought process: Tangential with some loose associations, easily distracted. Thought Content: racing thoughts, several different ideas/thoughts every moment, pt seems to be thinking about disasters like volcanos and earthquakes today. Cognition: A/O X 1, however knew that it was May of 2019. Insight: Poor Judgment: Poor Interventions PRN's used: None Therapeutic interventions: 1:1 assessment, establishment of rapport, active listening, reality orientation, medication administration/education/monitoring, encouragement to perform personal care and attend groups, Q 15 min safety checks. Restraints/seclusion/emergency medication: N/A Justification of Continued Inpatient Treatment: Per MD, pt. continues to be gravely disabled, and requires medication adjustments and a safe and supportive environment.
[2019-06-06] MEDS ORDERED: OLANZapine **IM** 10 mg inj. IM PRN (13:10)
[2019-06-06] MEDS: OLANZapine 5mg rapidly disint. tablet PO SCH (20:37)
[2019-06-06] MEDS: zolpidem 5mg tablet PO PRN (20:37)
--- NOTE | 2019-06-06 20:46 | NUR ---
Refused vital signs this evening. Addendum: 06/06/19 at 6 by Silvia Tuttle RN Amended: Links added.
--- NOTE | 2019-06-07 00:39 | NUR ---
Nursing Progress Note: Legal hold: 5250 Client on involuntary status for GD Report received from nurse with use of SBAR: TANYA Lowe Why are they here: The patient was admitted from [facility] on a 5150 for gravely disabled. She was initially taken into [facility] Mental Health crisis because she been becoming increasing unmanageable at home because of her psychotic symptoms. She was barricading the doors. She thought the water was being poisoned. Pt. has been off her psychiatric medications for the past year. She was becoming agitated and verbally abusive towards her daughter. Pt. has a history of schizophrenia since her early 20s. She has been conserved in the past and has had numerous prior psychiatric hospitalizations. Assessment What has happened this shift: Patient in her room at change of shift. She was pleasant and friendly, she was difficulty to follow and was tangential but cooperative. Later int eh shift patient refused all vital signs, became agitated and would no longer work with this typewriter aligner to finish the rest of her assessment. At medication pass time patient was irritable, yelling and angry. She made comments like "Oh did you bless the it, oh yay!." Then stated loud and angrily "Di you get a sleeping medication, oh you weren't going to show me?" "I've had to ask fro one 20 times, repeat, repeat, repeat, repeat." She did take the medications and her sleeping aid per request then took the medication cup and threw it at this typewriter aligner. She remained in her room the rest of the evening. S/I, H/I: Would not answer went off on a tangent A/VH: Denies but appears to RIS Sleep: Currently sleeping, see sleep assessment ADL's: Independent with prompts Group attendance: No groups this shift Were meds taken: Yes Any med S/E: None noted or reported Mental Status Exam Appearance: Neat, clean Eye contact: Direct Behavior: Irritable, labile, yelling Speech: Pressured, hyperverbal Mood: Labile, agitated, angry Affect: Congruent to mood Thought process: Tangential with some loose associations Thought Content: Racing thoughts, several different ideas/thoughts every moment Cognition: A/O X 1, Insight: Poor Judgment: Poor Interventions PRN's used: Ambien Therapeutic interventions: 1:1 assessment, establishment of rapport, active listening, reality orientation, medication administration/education/monitoring, encouragement to perform personal care and attend groups, Q 15 min safety checks. Restraints/seclusion/emergency medication: N/A Justification of Continued Inpatient Treatment: Per MD, pt. continues to be gravely disabled, and requires medication adjustments and a safe and supportive environment.
[2019-06-07 08:11] VITALS: BP 114/66
[2019-06-07] MEDS: levoTHYROXINE 25mcg tablet PO SCH (08:13)
[2019-06-07] MEDS: atorvastatin 10mg tablet PO SCH (08:13)
[2019-06-07] MEDS: acetaminophen 325mg tablet PO PRN (08:14)
--- NOTE | 2019-06-07 14:07 | NUR ---
Nursing Progress Note: Legal hold: 5250 Client on involuntary status for GD Report received from nurse with use of SBAR: Isa Ellis RN Why are they here: The patient was admitted from [facility] on a 5150 for gravely disabled. She was initially taken into [facility] Health crisis because she been becoming increasing unmanageable at home because of her psychotic symptoms. She was barricading the doors. She thought the water was being poisoned. Pt. has been off her psychiatric medications for the past year. She was becoming agitated and verbally abusive towards her daughter. Pt. has a history of schizophrenia since her early 20s. She has been conserved in the past and has had numerous prior psychiatric hospitalizations. Assessment What has happened this shift: Pt was calmer and more alert today. She agreed to take the new medications that the hospitalist ordered for her; levothyroxine and atorvastatin with education. Pt took the medications with breakfast then approached this RN afterwards to request that the meds be written down on her tablet of lined paper so that she would remember what she was taking and be able to continue taking it once discharged. Pt expressed understanding of why she was prescribed the medications and wished to know her lab results. Reviewed cholesterol levels and TSH. Pt c/o cold symptoms this morning, intermittent moist cough with nasal congestion, lungs were clear to auscultation, pt afebrile, encouraged fluids. Administered prn Tylenol 650 mg at 0825 for c/o a sore throat with good effect. Pt was requesting that a copy be made of a paper collage of dreams quotes with pictures of dream catchers. Encouraged pt to speak with the public affairs director about making a copy. Pt stated that she would write down the quotes she liked for now. Did not observe pt responding to internal stimuli this shift or hear her make any overtly delusional statements. Pt was calm, cooperative, and mostly organized in her actions today. S/I, H/I: Pt denies A/VH: Pt denies Sleep: Slept 6.5 hours per noc shift report ADL's: Independent with prompts Group attendance: Yes Were meds taken: Yes Any med S/E: None noted or reported Mental Status Exam Appearance: Neat, clean Eye contact: good Behavior: calm, pleasant, cooperative, markedly more organized Speech: Clear, audible Mood: Calm, pleasant Affect: congruent Thought process: improved, linear Thought Content: Pt wished to know medications ordered and lab results, she likes the quotes from the collage in the day room. Cognition: A/O X 3 Insight: Poor Judgment: Fair Interventions PRN's used: Tylenol 650 mg Therapeutic interventions: 1:1 assessment, active listening, therapeutic conversation, medication administration/education/monitoring, lab result review/education, encouragement to attend groups, Q 15 min safety checks. Restraints/seclusion/emergency medication: N/A Justification of Continued Inpatient Treatment: Pt is Riesed and has begun to respond to medication, she needs continued medication adjustment and monitoring for stabilization in a safe and therapeutic environment.
[2019-06-07] MEDS ORDERED: famotidine 10mg tablet PO SCH ×2 (17:00→20:00)
[2019-06-07] MEDS ORDERED: famotidine 20mg tablet PO SCH (17:16)
--- NOTE | 2019-06-07 19:56 | NUR ---
Patient refused vitals again this evening. She reported that she can feel the frequency from the BP machine going through her arms like the highway. She then stated she also knew there was a microphone on the machine listening to her transmitting more radio frequencies, and once a day of that was enough. Addendum: 06/07/19 at 1957 by Silvia Tuttle RN Amended: Links added.
[2019-06-07] MEDS: zolpidem 5mg tablet PO PRN (20:17)
[2019-06-07] MEDS: OLANZapine 5mg rapidly disint. tablet PO SCH (20:17)
--- NOTE | 2019-06-08 00:21 | NUR ---
Nursing Progress Note: Legal hold: 5250 Client on involuntary status for GD Report received from nurse with use of SBAR: TANYA Cabrera Why are they here: The patient was admitted from [facility] on a 5150 for gravely disabled. She was initially taken into [facility] Mental Health crisis because she been becoming increasing unmanageable at home because of her psychotic symptoms. She was barricading the doors. She thought the water was being poisoned. Pt. has been off her psychiatric medications for the past year. She was becoming agitated and verbally abusive towards her daughter. Pt. has a history of schizophrenia since her early 20s. She has been conserved in the past and has had numerous prior psychiatric hospitalizations. Assessment What has happened this shift: Patient in her room at change of shift. She was pleasant and cooperative at this time. She refused a short while alter to let the PCT take her vital signs, when approached by this documentation writer to take her vital signs patient became upset and she began talking louder reporting that she was receiving frequencies from the vitals machine (See Vitals note). She remained in her room this shift writing on her tablet, she asked for her daughters number this evening to call her number provided and patient was helped in dialing the phone but she was unable to reach her daughter. Patient is compliant for evening medication and takes it without difficulty. S/I, H/I: Denies A/VH: Denies but appears to RIS Sleep: Currently sleeping, see sleep assessment ADL's: Independent with prompts Group attendance: No groups this shift Were meds taken: Yes Any med S/E: None noted or reported Mental Status Exam Appearance: Neat, clean Eye contact: Direct Behavior: Calm, and cooperative, labile at times Speech: Pressured, hyperverbal Mood: calm and then labile at times Affect: Congruent to mood Thought process: Tangential with some loose associations Thought Content: Racing thoughts, several different ideas/thoughts every moment Cognition: A/O X 2 Insight: Poor Judgment: Poor Interventions PRN's used: Solitarioien Therapeutic interventions: 1:1 assessment, establishment of rapport, active listening, reality orientation, medication administration/education/monitoring, encouragement to perform personal care and attend groups, Q 15 min safety checks. Restraints/seclusion/emergency medication: N/A Justification of Continued Inpatient Treatment: Per MD, pt. continues to be gravely disabled, and requires medication adjustments and a safe and supportive environment.
[2019-06-08] MEDS: famotidine 20mg tablet PO SCH ×2 (07:20→17:32)
[2019-06-08] MEDS: atorvastatin 10mg tablet PO SCH (07:20)
[2019-06-08] MEDS: levoTHYROXINE 25mcg tablet PO SCH (07:20)
[2019-06-08 08:00] VITALS: BP 123/63
--- NOTE | 2019-06-08 15:22 | NUR ---
Nursing Progress Note: Legal hold: 5250 Client on involuntary status for GD Report received from nurse with use of SBAR: EMMA Devries Why are they here: The patient was admitted from [facility] on a 5150 for gravely disabled. She was initially taken into [facility] crisis because she been becoming increasing unmanageable at home because of her psychotic symptoms. She was barricading the doors. She thought the water was being poisoned. Pt. has been off her psychiatric medications for the past year. She was becoming agitated and verbally abusive towards her daughter. Pt. has a history of schizophrenia since her early 20s. She has been conserved in the past and has had numerous prior psychiatric hospitalizations. Assessment What has happened this shift: Pt was sleeping at the change of shift. She was compliant with medication administration. During assessment, pt's speech was tangential and she did not answer the questions asked. When asked if she had anxiety she responded that she feels tension. Unable to assess pt's SI/HI and A/V H because of pt's tangential responses that did not relate to the question. The pt appeared to be responding to internal stimuli. Pt requested this short story writer go over her medications with her. Pt has a pad of paper containing pages of notes and she turned to the page listing her medications. As this short story writer attempted to answer her questions regarding the medications, the pt became frustrated when this short story writer said that the pt did not take Zyprexa this morning. She stated this short story writer is a double agent and appeared agitated. She talked about Zyprexa being an antibiotic and she expressed concerned she has been on antibiotics for so long. She was unreceptive to education that Zyprexa is not an antibiotic. She put the pad of paper in her folder, closed the folder, and indicated she did not want to talk any more. In the afternoon, the pt was going through her papers and talking about calling someone that will provide her with food, clothing, and skilled nursing. She then began talking about the weather. Pt was noted to be talking to herself when nurse entered the room. S/I, H/I: Unable to assess, pt's responses were tangential A/VH: Unable to fully assess, but appears to RIS. Sleep: Sleeping at change of shift. Pt stated, "slept good." ADL's: Independent with prompts Group attendance: AM group Were meds taken: Yes Any med S/E: None noted or reported Mental Status Exam Appearance: Clean and neat Eye contact: Direct Behavior: Cooperative, but labile at times Speech: Pressured Mood: Pt reported, "tension." Labile at times Affect: Congruent to mood Thought process: Tangential, delusions Thought Content: Thinks she is on antibiotics, states this short story writer is a double agent Cognition: A/O X 2 Insight: Poor Judgment: Poor Interventions PRN's used: None Therapeutic interventions: 1:1 assessment, establishment of rapport, active listening, reality orientation, assessed for paranoia, delusions, and obsessions, medication administration/education/monitoring, encouragement to perform personal care and attend groups, Q 15 min safety checks. Restraints/seclusion/emergency medication: N/A Justification of Continued Inpatient Treatment: Per MD, pt. continues to be gravely disabled, and requires medication adjustments and a safe and supportive environment.
[2019-06-08 19:48] VITALS: BP 124/91
[2019-06-08] MEDS: OLANZapine 5mg rapidly disint. tablet PO SCH (21:15)
[2019-06-08] MEDS: zolpidem 5mg tablet PO PRN (21:15)
--- NOTE | 2019-06-08 23:30 | NUR ---
Client was harassing roommate. Roommate requested room change because this client had been "tormenting her all day".
--- NOTE | 2019-06-09 02:23 | NUR ---
Nursing Progress Note: Legal hold: 5250 Client on involuntary status for GD Report received from nurse with use of SBAR: TANYA Cabrera Why are they here: The patient was admitted from [facility] on a 5150 for gravely disabled. She was initially taken into [facility] Health crisis because she been becoming increasing unmanageable at home because of her psychotic symptoms. She was barricading the doors. She thought the water was being poisoned. Pt. has been off her psychiatric medications for the past year. She was becoming agitated and verbally abusive towards her daughter. Pt. has a history of schizophrenia since her early 20s. She has been conserved in the past and has had numerous prior psychiatric hospitalizations. Assessment What has happened this shift: Patient in her room at change of shift. She is labile and states "I have nothing nice to say." And then starts mocking her roommate who wasn't in the room at the time. She is not willing to talk and is left alone to calm on her own. She does allow a PCT to take her vitals this evening without issue. She remains labile throughout the evening not willing to interact with others and making delusional statements. She does agree to take her HS medications this evening without issue but does state before she takes them "These are so small they wont do anything." She sits in the grace for a bit in the evening before turning to bed. It is noted that she later was harassing her roommate to the point of roommate requesting room change which was accommodated. S/I, H/I: Denies A/VH: Denies but appears to RIS Sleep: Currently sleeping, see sleep assessment ADL's: Independent with prompts Group attendance: No groups this shift Were meds taken: Yes Any med S/E: None noted or reported Mental Status Exam Appearance: Neat, clean Eye contact: Direct Behavior: Labile, agitated Speech: Pressured, hyperverbal Mood: Labile, agitated Affect: Congruent to mood Thought process: Tangential with some loose associations Thought Content: Racing thoughts, several different ideas/thoughts every moment Cognition: A/O X 2 Insight: Poor Judgment: Poor Interventions PRN's used: Ambien Therapeutic interventions: 1:1 assessment, establishment of rapport, active listening, reality orientation, medication administration/education/monitoring, encouragement to perform personal care and attend groups, Q 15 min safety checks. Restraints/seclusion/emergency medication: N/A Justification of Continued Inpatient Treatment: Per MD, pt. continues to be gravely disabled, and requires medication adjustments and a safe and supportive environment.
[2019-06-09] MEDS: famotidine 20mg tablet PO SCH ×2 (07:46→17:13)
[2019-06-09] MEDS: atorvastatin 10mg tablet PO SCH (07:46)
[2019-06-09] MEDS: levoTHYROXINE 25mcg tablet PO SCH (07:46)
[2019-06-09 07:58] VITALS: BP 121/62
--- NOTE | 2019-06-09 11:15 | NUR ---
reassessment: Pt PO 75-100% avg meals meeting needs. LBM 06/06. Receiving synthroid now w/ thyroidectomy hx. No nutrition concerns at this time. Will continue to monitor. Recommend: 1. continue regular diet 2. bowel care as needed if constipation 3. weekly weights Addendum: 06/09/19 at [address] Amended: Links added.
--- NOTE | 2019-06-09 15:13 | NUR ---
Nursing Progress Note: Legal hold: 5250 Client on involuntary status for GD Report received from nurse with use of SBAR: EMMA Devries Why are they here: The patient was admitted from [facility] on a 5150 for gravely disabled. She was initially taken into [facility] Health crisis because she been becoming increasing unmanageable at home because of her psychotic symptoms. She was barricading the doors. She thought the water was being poisoned. Pt. has been off her psychiatric medications for the past year. She was becoming agitated and verbally abusive towards her daughter. Pt. has a history of schizophrenia since her early 20s. She has been conserved in the past and has had numerous prior psychiatric hospitalizations. Assessment What has happened this shift: Pt was sleeping at the change of shift. She was impatient during medication administration. Unable to fully assess pt because her responses to questions were tangential and did not apply to the question. When asked about having a bowel movement, she began talking about the bill of rights. She exhibited evidence of flight of ideas as she moved from topic to topic with no relationship between her ideas. Her thoughts appear illogical. As she sat on the bed she was rocking her body back and forth. Her affect was labile. Pt attended morning group. S/I, H/I: Unable to assess, pt's responses were tangential A/VH: Unable to fully assess, but pt appears to be RIS. Sleep: Sleeping at change of shift. ADL's: Independent with prompts Group attendance: Yes Were meds taken: Yes Any med S/E: None noted or reported Mental Status Exam Appearance: Neat, clean Eye contact: Direct Behavior: Isolates, hyperverbal Speech: Pressured Mood: Labile Affect: Congruent to mood Thought process: Tangential, delusions Thought Content: Difficult to assess, pt exhibits flight of ideas Cognition: A/O X 2 Insight: Poor Judgment: Poor Interventions PRN's used: None Therapeutic interventions: 1:1 assessment, establishment of rapport, active listening, reality orientation, assessed for paranoia, delusions, and obsessions, medication administration/education/monitoring, encouragement to perform personal care and attend groups, Q 15 min safety checks. Restraints/seclusion/emergency medication: N/A Justification of Continued Inpatient Treatment: Per MD, pt. continues to be gravely disabled, and requires medication adjustments and a safe and supportive environment.
[2019-06-09] MEDS: OLANZapine 5mg rapidly disint. tablet PO SCH (20:24)
--- NOTE | 2019-06-09 22:05 | NUR ---
Nursing Progress Note: Legal hold: 5250 Client on involuntary status for GD Report received from nurse with use of SBAR: TANYA Cabrera Why are they here: The patient was admitted from [facility] on a 5150 for gravely disabled. She was initially taken into [facility] Mental Health crisis because she been becoming increasing unmanageable at home because of her psychotic symptoms. She was barricading the doors. She thought the water was being poisoned. Pt. has been off her psychiatric medications for the past year. She was becoming agitated and verbally abusive towards her daughter. Pt. has a history of schizophrenia since her early 20s. She has been conserved in the past and has had numerous prior psychiatric hospitalizations. Assessment What has happened this shift: Patient in her room at change of shift. When approached for 1:1 pt began making bizarre statements about how the room is leaking propane and "she has put up with this place long enough." Pt continued to speak about nonsensical things, tangential in nature, making assessment nearly impossible. pt refused vitals but took HS meds without issue. pt awoke around 10pm and asked to move beds in her room, which was allowed. S/I, H/I: would not answer A/VH: would not answer Sleep: Currently sleeping, see sleep assessment ADL's: Independent with prompts Group attendance: no Were meds taken: Yes Any med S/E: None noted or reported Mental Status Exam Appearance: Neat, clean Eye contact: Direct Behavior: Labile, agitated Speech: Pressured, hyperverbal Mood: Labile, agitated Affect: Congruent to mood Thought process: Tangential with some loose associations Thought Content: all over the place, inconsistent Cognition: A/O X 2 Insight: Poor Judgment: Poor Interventions PRN's used: none Therapeutic interventions: 1:1 assessment, establishment of rapport, active listening, reality orientation, medication administration/education/monitoring, encouragement to perform personal care and attend groups, Q 15 min safety checks. Restraints/seclusion/emergency medication: N/A Justification of Continued Inpatient Treatment: Per MD, pt. continues to be gravely disabled, and requires medication adjustments and a safe and supportive environment. Addendum: 06/10/19 at 0005 by Rick Aguirre RN pt offered ambien twice but refused both times. pt is up at 0010 making bizarre statements about "someone throwing a killer dog in the building." pt is easily redirected and returns to bed.
[2019-06-10] MEDS: OLANZAPINE 5 MG TABLET PO SCH ×2 (08:00→08:02)
[2019-06-10] MEDS: levoTHYROXINE 25mcg tablet PO SCH (08:02)
[2019-06-10] MEDS: atorvastatin 10mg tablet PO SCH (08:02)
[2019-06-10] MEDS: famotidine 20mg tablet PO SCH ×2 (08:02→17:55)
--- NOTE | 2019-06-10 15:01 | NUR ---
Nursing Progress Note: Legal hold: 5250 Client on involuntary status for GD Report received from nurse with use of SBAR: EMMA Devries Why are they here: The patient was admitted from [facility] on a 5150 for gravely disabled. She was initially taken into [facility] Mental Health crisis because she been becoming increasing unmanageable at home because of her psychotic symptoms. She was barricading the doors. She thought the water was being poisoned. Pt. has been off her psychiatric medications for the past year. She was becoming agitated and verbally abusive towards her daughter. Pt. has a history of schizophrenia since her early 20s. She has been conserved in the past and has had numerous prior psychiatric hospitalizations. Assessment What has happened this shift: Pt was sleeping at the change of shift and up for breakfast. RN approached patient at breakfast to introduce herself and give her her medication. Patient took all her regular medication without incident as RN gave patient the name of each medication as she was giving it. When RN introduced the 5 mg Zyprexa morning dose, patient through her arms straight up in the air swings her fists and started screaming that the doctor didn't know what he was doing, the nurse doesn't know what she was doing. She than went on and and RN moved out of her line of site and patient calmed down. Patient heard a patient yelling 2 door down and patient started yelling out tangential statements, not making sense. Patient did this for several minutes and then stopped. RN attempted to speak to patient and patient not answering the right question. Patient appears psychotic. S/I, H/I: A/VH: Patient appears to be responding to internal stimuli. Sleep: Patient laid down during the day or sat in her bed. Did not sleep ADL's: Independent with prompts Group attendance: Yes (in and out of group) Were meds taken: Yes (refused her morning Zyprexa, cancelled and increased night dose to [address] Armenta) Any med S/E: None noted or reported Mental Status Exam Appearance: Neat, clean Eye contact: Direct Behavior: Patient isolates and yells incongruent statements Speech: Pressured Mood: Labile Affect: Angry Thought process: Tangential, delusions Thought Content: Cognition: A/O X 2 Insight: Poor Judgment: Poor Interventions PRN's used: None Therapeutic interventions: 1:1 assessment, establishment of rapport, active listening, reality orientation, assessed for paranoia, delusions, and obsessions, medication administration/education/monitoring, encouragement to perform personal care and attend groups, Q 15 min safety checks. Restraints/seclusion/emergency medication: N/A Justification of Continued Inpatient Treatment: Per MD, pt. continues to be gravely disabled, and requires medication adjustments and a safe and supportive environment.
[2019-06-10 20:00] VITALS: BP 128/72
[2019-06-10] MEDS: OLANZapine 5mg rapidly disint. tablet PO SCH (20:18)
[2019-06-10] MEDS: zolpidem 5mg tablet PO PRN (20:18)
[2019-06-10 22:14] VITALS: BP 128/72
--- NOTE | 2019-06-11 00:30 | NUR ---
Nursing Progress Note: Legal hold: 5250 Client on involuntary status for GD Report received from nurse with use of SBAR: TANYA Burgos Why are they here: The patient was admitted from [facility] on a 5150 for gravely disabled. She was initially taken into [facility] Mental Health crisis because she been becoming increasing unmanageable at home because of her psychotic symptoms. She was barricading the doors. She thought the water was being poisoned. Pt. has been off her psychiatric medications for the past year. She was becoming agitated and verbally abusive towards her daughter. Pt. has a history of schizophrenia since her early 20s. She has been conserved in the past and has had numerous prior psychiatric hospitalizations. Assessment What has happened this shift: Patient in her room at change of shift, lying in bed staring at the ceiling. When approached for 1:1 pt began saying nonsensical things, very tangental in nature, making it difficult to elicit an answer to questions. pt is fixated on medications and asked if she was going to get her prn's tonight and was told she has ambien available. pt appears to be bothered with questions and answers in a defensive tone. pt took hs meds without issue but mostly isolated herself to her room most of evening. S/I, H/I: would not answer A/VH: would not answer Sleep: Currently sleeping, see sleep assessment ADL's: Independent with prompts Group attendance: no Were meds taken: Yes Any med S/E: None noted or reported Mental Status Exam Appearance: Neat, clean Eye contact: Direct Behavior: isolative Speech: Pressured Mood: agitated Affect: Congruent to mood Thought process: Tangential, loose associations Thought Content: medications Cognition: A/O X 2 Insight: Poor Judgment: Poor Interventions PRN's used: none Therapeutic interventions: 1:1 assessment, establishment of rapport, active listening, reality orientation, medication administration/education/monitoring, encouragement to perform personal care and attend groups, Q 15 min safety checks. Restraints/seclusion/emergency medication: N/A Justification of Continued Inpatient Treatment: Per MD, pt. continues to be gravely disabled, and requires medication adjustments and a safe and supportive environment.
[2019-06-11] MEDS: famotidine 20mg tablet PO SCH ×2 (07:48→17:54)
[2019-06-11] MEDS: atorvastatin 10mg tablet PO SCH (07:48)
[2019-06-11] MEDS: levoTHYROXINE 25mcg tablet PO SCH (07:48)
[2019-06-11 08:00] VITALS: BP 138/58
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
[2019-06-11 19:36] VITALS: BP 109/52
[2019-06-11] MEDS: zolpidem 5mg tablet PO PRN (20:07)
[2019-06-11] MEDS: OLANZapine 5mg rapidly disint. tablet PO SCH (20:07)
[2019-06-11] MEDS: diphenhydrAMINE 25mg capsule PO PRN (22:40)
[2019-06-12] MEDS ORDERED: traZODone 50mg tablet PO ONE (00:20)
--- NOTE | 2019-06-12 01:08 | NUR ---
Nursing Progress Note: Legal hold: 5250 Client on involuntary status for GD Report received from nurse with use of SBAR: TANYA Burgos Why are they here: The patient was admitted from [facility] on a 5150 for gravely disabled. She was initially taken into [facility] Mental Health crisis because she been becoming increasing unmanageable at home because of her psychotic symptoms. She was barricading the doors. She thought the water was being poisoned. Pt. has been off her psychiatric medications for the past year. She was becoming agitated and verbally abusive towards her daughter. Pt. has a history of schizophrenia since her early 20s. She has been conserved in the past and has had numerous prior psychiatric hospitalizations. Assessment What has happened this shift: Patient sitting in rec room at change of shift. When approached for 1:1 pt was able to ask about her prn medications and her length of stay with clarity that was not observed by this rn until today. pt denied si/hi and asked to shower. when tech brought supplies, pt had changed her mind. pt spent most of the evening in her room, but would periodically come to observation room and say nonsensical things with very loose associations. pt was given prn benadryl for insomnia but SCOUT [facility]. S/I, H/I: denied A/VH: would not answer Sleep: Currently sleeping, but wakes often ADL's: Independent with prompts Group attendance: no Were meds taken: Yes Any med S/E: None noted or reported Mental Status Exam Appearance: Neat, clean Eye contact: Direct Behavior: isolative Speech: Pressured Mood: agitated Affect: Congruent to mood Thought process: Tangential, loose associations Thought Content: medications Cognition: A/O X 2 Insight: Poor Judgment: Poor Interventions PRN's used: none Therapeutic interventions: 1:1 assessment, establishment of rapport, active listening, reality orientation, medication administration/education/monitoring, encouragement to perform personal care and attend groups, Q 15 min safety checks. Restraints/seclusion/emergency medication: N/A Justification of Continued Inpatient Treatment: Per MD, pt. continues to be gravely disabled, and requires medication adjustments and a safe and supportive environment.
[2019-06-12] MEDS: levoTHYROXINE 25mcg tablet PO SCH (07:00)
[2019-06-12] MEDS: ECHINACEA PO SCH (08:00)
[2019-06-12] MEDS: famotidine 20mg tablet PO SCH ×2 (08:07→17:15)
[2019-06-12] MEDS: atorvastatin 10mg tablet PO SCH (08:07)
[2019-06-12 08:16] VITALS: BP 135/68
[2019-06-12] MEDS: loratadine/pseudoephedrine TAB.SR.12Hour PO SCH (10:23)
--- NOTE | 2019-06-12 17:45 | NUR ---
Nursing Progress Note: Legal hold: 5250 Client on involuntary status for GD Report received from nurse with use of SBAR: TANYA Blandon Why are they here: The patient was admitted from [facility] on a 5150 for gravely disabled. She was initially taken into [facility] Health crisis because she been becoming increasing unmanageable at home because of her psychotic symptoms. She was barricading the doors. She thought the water was being poisoned. Pt. has been off her psychiatric medications for the past year. She was becoming agitated and verbally abusive towards her daughter. Pt. has a history of schizophrenia since her early 20s. She has been conserved in the past and has had numerous prior psychiatric hospitalizations. Assessment What has happened this shift: Pt. Asleep at start of shift. Pt. ate all meals in community room. Pt. took all medications. 1:1 done at bedside. Pt. reports hearing voices but did not inform RN what they are saying. Pt. is hyperverbal with pressured speech. Pt. has d/o, tangential, loose associations, and paranoid thought process. Pt. believes she is here because of her vision. RN overheard this pt. trying to call patient's rights advocate and told her she was here to get her vision fixed. Pt. isolates to room at times but does come to groups and engage. S/I, H/I: denied A/VH: reports hearing voices but does not say what they say. Sleep: Pt. awake all day. ADL's: Independent Group attendance: Yes Were meds taken: Yes Any med S/E: None noted or reported Mental Status Exam Appearance: Neat, clean Eye contact: Direct Behavior: isolative Speech: Pressured, hyperverbal Mood: Euthymic but labile becoming easily agitated. Affect: Congruent to mood Thought process: Tangential, loose associations Thought Content: medications, talking with patient's rights advocate. Cognition: A/O X 2 Insight: Poor Judgment: Poor Interventions PRN's used: none Therapeutic interventions: 1:1 assessment, establishment of rapport, active listening, reality orientation, medication administration/education/monitoring, encouragement to perform personal care and attend groups, Q 15 min safety checks. Restraints/seclusion/emergency medication: N/A Justification of Continued Inpatient Treatment: Per MD, pt. continues to be gravely disabled, and requires medication adjustments and a safe and supportive environment.
[2019-06-12 20:00] VITALS: BP 115/47
[2019-06-12] MEDS: OLANZapine 5mg rapidly disint. tablet PO SCH (20:33)
[2019-06-12] MEDS: oxcarbazepine 150mg tablet PO SCH (20:33)
[2019-06-12] MEDS: zolpidem 5mg tablet PO PRN (20:37)
--- NOTE | 2019-06-13 03:41 | NUR ---
Nursing Progress Note Legal hold: 5250 Client on involuntary status for: GD Report received from nurse with use of Rodrigo TRIVEDI RN. Why are they here: The patient was admitted from [facility] on a 5150 for gravely disabled. She was initially taken into [facility] because she been becoming increasing unmanageable at home because of her psychotic symptoms. She was barricading the doors. She thought the water was being poisoned. She has been off her psychiatric medications for the past year. She was becoming agitated and abusive towards her daughter. The patient's daughter believed she could not provide the level of care the patient needed. She has a history of schizophrenia since her early 20s. She has been conserved in the past and has had numerous prior psychiatric hospitalizations. Assessment What has happened this shift: Pt in room at change of shift. Pt jumps from topic to topic during 1:1, "I have tooth decay, the root canal is done. I just need it looked at then I can get my license." Pt is sorting through numerous of her writings, stating "I'm looking for the list. It tells me how I am and what I need to do for discharge. You need to see." Pt eventually abandons her effort to find the list. She then begins to talk about the "Motion sensors. Over there; they help with eye sight. Just like the braille on all the doors." Pt able to answer direct questions. Compliant with medications and requested Ambien. Went to sleep shortly after administration. S/I, H/I: Denies A/VH: Would not answer Sleep: See Sleep Assessment ADL's: Independent Group attendance: N/A Were meds taken: Yes; pt is Riesed. Any med S/E: None observed, none reported Mental Status Exam Appearance: Clean and well groomed wearing unit scrubs and nonskid socks Eye contact: Direct Behavior: Cooperative, Isolated to room but did attend HS Snack Speech: Soft, Normal rate and rhythm, Pt rambles Mood: Restless, "I'm doing well" Affect: Restricted Thought process: Disorganized, Tangential Thought Content: Plans for discharge, Needing her ID, wanting to take a electric truck driver's test Cognition: Impaired Insight: Poor Judgment: Poor Interventions PRN's used: Ambien Therapeutic interventions: 1:1 with the patient to assess severity of thought disorder and build therapeutic relationship. Provided medication education and encouraged to start antipsychotics. She remains on q 15 minute safety checks Restraints/seclusion/emergency medication: N/A Justification of Continued Inpatient Treatment: The patient remains gravely disabled with thought disorder, and has poor insight into her need for treatment and medications.
[2019-06-13] MEDS: loratadine/pseudoephedrine TAB.SR.12Hour PO SCH (07:36)
[2019-06-13] MEDS: levoTHYROXINE 25mcg tablet PO SCH (07:37)
[2019-06-13] MEDS: atorvastatin 10mg tablet PO SCH (07:37)
[2019-06-13] MEDS: oxcarbazepine 150mg tablet PO SCH ×2 (07:37→21:03)
[2019-06-13] MEDS: famotidine 20mg tablet PO SCH ×2 (07:37→17:39)
[2019-06-13 07:58] VITALS: BP 140/61
[2019-06-13] MEDS: ECHINACEA PO SCH (08:00)
--- NOTE | 2019-06-13 11:24 | NUR ---
Ana from [facility] called for an update on Ct's progress. Provided the update. Ana reported they will call again for a couple days for an update. MARIO Blue
--- NOTE | 2019-06-13 17:51 | NUR ---
Nursing Progress Note Legal hold: 5250 Client on involuntary status for: GD Report received from nurse with use of Jamia TRIVEDI RN. Why are they here: The patient was admitted from [facility] on a 5150 for gravely disabled. She was initially taken into [facility] crisis because she been becoming increasing unmanageable at home because of her psychotic symptoms. She was barricading the doors. She thought the water was being poisoned. She has been off her psychiatric medications for the past year. She was becoming agitated and abusive towards her daughter. The patient's daughter believed she could not provide the level of care the patient needed. She has a history of schizophrenia since her early 20s. She has been conserved in the past and has had numerous prior psychiatric hospitalizations. Assessment What has happened this shift: Patient observed wondering the hallway at change of shift. She joins others in the group room for coffee and stays throughout breakfast. Patient takes her medication without issue. She is friendly and conversational, though topic strays and is continuous. Patient states she hasnt been able to talk to her daughter because the noise from the [place] was too loud causing her to be out of power. She makes delusional statements saying Im only here because I need my eyes checked for eyeglasses, when that is done I can go home. Patient is observed attending group room activity but does not participate. S/I, H/I: none reported A/VH: none reported Sleep: 7hrs NOC ADL's: Independent Group attendance: yes Were meds taken: Yes Any med S/E: None observed, none reported Mental Status Exam Appearance: Clean and well groomed wearing unit scrubs and nonskid socks Eye contact: Direct Behavior: Cooperative, conversational Speech: Soft, Normal rate and rhythm Mood: good mood Affect: Restricted Thought process: Disorganized, Tangential Thought Content: wanting her eyes checked Cognition: Impaired Insight: Poor Judgment: Poor Interventions PRN's used: none Therapeutic interventions: 1:1 therapeutic assessment, maintained safe therapeutic milieu, provided active listening with positive reinforcement, provided medication administration/education/monitoring as needed; Q15 safety checks. Restraints/seclusion/emergency medication: N/A Justification of Continued Inpatient Treatment: Continued therapeutic support and medication management needed to provide stabilization, prevent decompensation, improve coping mechanisms decreasing risk to patient and re-admittance.
--- NOTE | 2019-06-13 20:00 | NUR ---
Pt refused vitals Addendum: 06/14/19 at 0332 by Selene Patton RN Amended: Links added.
[2019-06-13] MEDS: olanzapine 10mg tablet PO SCH (21:03)
[2019-06-13] MEDS: benztropine 1mg tablet PO SCH (21:03)
--- NOTE | 2019-06-14 05:41 | NUR ---
Nursing Progress Note Legal hold: 5250 Client on involuntary status for: GD Report received from nurse with use of Rick TRIVEDI CRN. Why are they here: The patient was admitted from [facility] on a 5150 for gravely disabled. She was initially taken into [facility] crisis because she been becoming increasing unmanageable at home because of her psychotic symptoms. She was barricading the doors. She thought the water was being poisoned. She has been off her psychiatric medications for the past year. She was becoming agitated and abusive towards her daughter. The patient's daughter believed she could not provide the level of care the patient needed. She has a history of schizophrenia since her early 20s. She has been conserved in the past and has had numerous prior psychiatric hospitalizations. Assessment What has happened this shift: Patient observed reading patient's right handbook in her room at the beginning of shift. Patient had misconceptions of her legal status with the right to discharge but was easily redirected at the time. Patient continues to be resistive to care but compliant with all medications. 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 Patient did not report SI or HI, she is observed responding to internal stimuli. Patient speech remains pressured. S/I, H/I: none reported A/VH: none reported Sleep: refer to sleep assessment ADL's: Independent Group attendance: no groups this shift Were meds taken: Yes Any med S/E: None observed, none reported Mental Status Exam Appearance: Clean and well groomed wearing unit scrubs and nonskid socks Eye contact: Direct Behavior: Cooperative, conversational Speech: pressured Mood: pleasant Affect: Restricted Thought process: Disorganized, Tangential Thought Content: discharge, patient rights Cognition: Impaired Insight: Poor Judgment: Poor Interventions PRN's used: none Therapeutic interventions: 1:1 therapeutic assessment, maintained safe therapeutic milieu, provided active listening with positive reinforcement, provided medication administration/education/monitoring as needed; Q15 safety checks. Restraints/seclusion/emergency medication: N/A Justification of Continued Inpatient Treatment: Continued therapeutic support and medication management needed to provide stabilization, prevent decompensation, improve coping mechanisms decreasing risk to patient and re-admittance.
[2019-06-14] MEDS: loratadine/pseudoephedrine TAB.SR.12Hour PO SCH (07:42)
[2019-06-14] MEDS: atorvastatin 10mg tablet PO SCH (07:42)
[2019-06-14] MEDS: oxcarbazepine 150mg tablet PO SCH ×3 (07:42→20:00)
[2019-06-14] MEDS: benztropine 1mg tablet PO SCH ×2 (07:42→20:00)
[2019-06-14] MEDS: famotidine 20mg tablet PO SCH ×2 (07:42→17:14)
[2019-06-14] MEDS: levoTHYROXINE 25mcg tablet PO SCH (07:42)
[2019-06-14 08:00] VITALS: BP 131/65
[2019-06-14] MEDS: ECHINACEA PO SCH (08:00)
--- NOTE | 2019-06-14 16:45 | NUR ---
Nursing Progress Note Legal hold: 5250 Client on involuntary status for: GD Report received from nurse with use of SBAR, Ias Meza RN. Why are they here: The patient was admitted from [facility] on a 5150 for gravely disabled. She was initially taken into [facility] crisis because she been becoming increasing unmanageable at home because of her psychotic symptoms. She was barricading the doors. She thought the water was being poisoned. She has been off her psychiatric medications for the past year. She was becoming agitated and abusive towards her daughter. The patient's daughter believed she could not provide the level of care the patient needed. She has a history of schizophrenia since her early 20s. She has been conserved in the past and has had numerous prior psychiatric hospitalizations. Assessment What has happened this shift: Patient is sleeping at change of shift. She is woken to take her medications and requests that each medication is gone over with her prior to administration. Patient takes out Trileptal and states I have the right to refuse you know. Just hold onto it until after I talk to my doctor, I might take it later. You already gave me zyprexa. RN assured patient zyprexa was not administered. Patient states No one can afford an assistant city attorney, you shouldnt do that. Patient is observed talking to herself throughout the day. When asked if she hears voices, she states Only the teachers voice like everybody else. RN attempted again to get patient to take trileptal and patient refused, becoming loud and upset. RN consult with prescriber; zyprexa recently increased to 30mg, wait for results. S/I, H/I: none reported A/VH: denies Sleep: 7hrs NOC ADL's: Independent Group attendance: yes Were meds taken: Yes Any med S/E: movement of right foot, patient states this is not new Mental Status Exam Appearance: Clean and well groomed wearing unit scrubs and nonskid socks Eye contact: Direct Behavior: Resistant to care,isolative, re-directable Speech: Soft, Normal rate and rhythm Mood: upset about her rights being violated Affect: Restricted Thought process: Disorganized, Tangential Thought Content: patient rights Cognition: Impaired Insight: Poor Judgment: Poor Interventions PRN's used: none Therapeutic interventions: 1:1 therapeutic assessment, maintained safe therapeutic milieu, provided active listening with positive reinforcement, provided medication administration/education/monitoring as needed; Q15 safety checks. Restraints/seclusion/emergency medication: N/A Justification of Continued Inpatient Treatment: Continued therapeutic support and medication management needed to provide stabilization, prevent decompensation, improve coping mechanisms decreasing risk to patient and re-admittance.
[2019-06-14] MEDS: olanzapine 10mg tablet PO SCH (21:00)
--- NOTE | 2019-06-15 05:17 | NUR ---
Nursing Progress Note Legal hold: 5250 Client on involuntary status for: GD Report received from nurse with use of Rick TRIVEDI CRN. Why are they here: The patient was admitted from [facility] on a 5150 for gravely disabled. She was initially taken into [facility] crisis because she been becoming increasing unmanageable at home because of her psychotic symptoms. She was barricading the doors. She thought the water was being poisoned. She has been off her psychiatric medications for the past year. She was becoming agitated and abusive towards her daughter. The patient's daughter believed she could not provide the level of care the patient needed. She has a history of schizophrenia since her early 20s. She has been conserved in the past and has had numerous prior psychiatric hospitalizations. Assessment What has happened this shift: Patient pacing the grace, responding to internal stimuli at the beginning of shift. Patient continues to isolate to herself, occasionally staring through the nurses station window. Patient refused VS, assessment and PO medication. She was offered her medication twice but she stated, "I don't take Zyprexa, theses are not the meds I've been taking" she was unable to redirect. While this principal technical writer was trying to explain her medication misunderstanding she continuously tried to insult, stating, "look at you thinking you're above the law. You think you're the zapata with those turkey's (looking at principal technical writer's sweater)." Patient received IM Zyprexa for refusal of PO meds. Patient agitated directly after injection kicking toward this nurse and threatening staff with law suites. Shortly after patient settled and went to sleep, no ASE observed. S/I, H/I: none reported A/VH: none reported Sleep: refer to sleep assessment ADL's: Independent Group attendance: no groups this shift Were meds taken: Yes Any med S/E: None observed, none reported Mental Status Exam Appearance: Clean and well groomed wearing unit scrubs and nonskid socks Eye contact: Direct Behavior: agitated, argumentative, resistive to care Speech: pressured Mood: pleasant Affect: Restricted Thought process: Disorganized, tangential, delusional Thought Content: patient rights, not taking Zyprexa, law suites Cognition: Impaired Insight: Poor Judgment: Poor Interventions PRN's used: IM Zyprexa Therapeutic interventions: 1:1 therapeutic assessment, maintained safe therapeutic milieu, provided active listening with positive reinforcement, provided medication administration/education/monitoring as needed; Q15 safety checks. Restraints/seclusion/emergency medication: N/A Justification of Continued Inpatient Treatment: Continued therapeutic support and medication management needed to provide stabilization, prevent decompensation, improve coping mechanisms decreasing risk to patient and re-admittance.
[2019-06-15] MEDS: loratadine/pseudoephedrine TAB.SR.12Hour PO SCH (07:49)
[2019-06-15] MEDS: atorvastatin 10mg tablet PO SCH (07:49)
[2019-06-15] MEDS: benztropine 1mg tablet PO SCH ×2 (07:49→21:32)
[2019-06-15] MEDS: oxcarbazepine 150mg tablet PO SCH ×2 (07:49→21:33)
[2019-06-15] MEDS: famotidine 20mg tablet PO SCH ×2 (07:49→17:54)
[2019-06-15] MEDS: levoTHYROXINE 25mcg tablet PO SCH (07:49)
[2019-06-15 08:00] VITALS: BP 99/65
[2019-06-15] MEDS: ECHINACEA PO SCH (08:00)
--- NOTE | 2019-06-15 16:09 | NUR ---
Nursing Progress Note Legal hold: 5250 Client on involuntary status for: GD Report received from nurse with use of SBAR, Isa Meza RN. Why are they here: The patient was admitted from [facility] on a 5150 for gravely disabled. She was initially taken into [facility] crisis because she been becoming increasing unmanageable at home because of her psychotic symptoms. She was barricading the doors. She thought the water was being poisoned. She has been off her psychiatric medications for the past year. She was becoming agitated and abusive towards her daughter. The patient's daughter believed she could not provide the level of care the patient needed. She has a history of schizophrenia since her early 20s. She has been conserved in the past and has had numerous prior psychiatric hospitalizations. Assessment What has happened this shift: Patient is observed sleeping at change of shift. She is woken to take her morning medications. Without discussion, she gets up, takes her meds and then lays back down. Patient joins others in the group room for breakfast. Report received that patient would not talk to the doctor either. Patient isolates throughout the day. Patient placed on 5270 today. S/I, H/I: none reported A/VH: none reported, observed talking to self Sleep: 5.5hrs NOC ADL's: Independent Group attendance: yes Were meds taken: Yes Any med S/E: movement of right foot Mental Status Exam Appearance: Clean and well groomed wearing unit scrubs and nonskid socks Eye contact: Direct Behavior: guarded, isolative Speech: not talking Mood: upset about her rights being violated Affect: flat Thought process: disorganized Thought Content: patient rights Cognition: Impaired Insight: Poor Judgment: Poor Interventions PRN's used: none Therapeutic interventions: 1:1 therapeutic assessment, maintained safe therapeutic milieu, provided active listening with positive reinforcement, provided medication administration/education/monitoring as needed; Q15 safety checks. Restraints/seclusion/emergency medication: N/A Justification of Continued Inpatient Treatment: Continued therapeutic support and medication management needed to provide stabilization, prevent decompensation, improve coping mechanisms decreasing risk to patient and re-admittance.
[2019-06-15 20:00] VITALS: BP 97/64
[2019-06-15] MEDS: olanzapine 10mg tablet PO SCH (21:32)
[2019-06-15] MEDS: acetaminophen 325mg tablet PO PRN (21:56)
--- NOTE | 2019-06-16 04:57 | NUR ---
Nursing Progress Note Legal hold: 5270 Client on involuntary status for: GD Report received from nurse with use of Rick TRIVEDI CRN. Why are they here: The patient was admitted from [facility] on a 5150 for gravely disabled. She was initially taken into [facility] crisis because she been becoming increasing unmanageable at home because of her psychotic symptoms. She was barricading the doors. She thought the water was being poisoned. She has been off her psychiatric medications for the past year. She was becoming agitated and abusive towards her daughter. The patient's daughter believed she could not provide the level of care the patient needed. She has a history of schizophrenia since her early 20s. She has been conserved in the past and has had numerous prior psychiatric hospitalizations. Assessment What has happened this shift: Patient sitting up on her bed at the beginning of shift. She continues to isolate to herself but engaging in conversation with staff when she is approached first. She stated she felt she had "a good day." Patient was pleasant an cooperative with all care, compliant with all medications. Patient stated, "the Zyprexa would be easier to take if they had coating on them to slide down better." She also suggested this nurse talk to pharmacist the next time this selling underwriter is at a pharmacy. Patient talked about daughter going through power outages in [facility] and expressed difficulty reaching her by phone. Patient A/VH but observed responding to internal stimuli but unclear to what she was saying. Patient denied SI and HI. Patient requested PRN Tylenol for SORIANO, positive effect. S/I, H/I: none reported A/VH: observed responding to internal stimuli Sleep: refer to sleep assessment ADL's: Independent Group attendance: no groups this shift Were meds taken: Yes Any med S/E: None observed, none reported Mental Status Exam Appearance: Clean and well groomed wearing unit scrubs and nonskid socks Eye contact: Direct Behavior: pleasant and cooperative, engaged in conversation Speech: clear, steady, audible Mood: "good" Affect: congruent to mood, pleasant Thought process: Disorganized, tangential Thought Content: talking to daughter Cognition: Impaired Insight: Poor Judgment: Poor Interventions PRN's used: Tylenol Therapeutic interventions: 1:1 therapeutic assessment, maintained safe therapeutic milieu, provided active listening with positive reinforcement, provided medication administration/education/monitoring as needed; Q15 safety checks. Restraints/seclusion/emergency medication: N/A Justification of Continued Inpatient Treatment: Continued therapeutic support and medication management needed to provide stabilization, prevent decompensation, improve coping mechanisms decreasing risk to patient and re-admittance.
[2019-06-16] MEDS: loratadine/pseudoephedrine TAB.SR.12Hour PO SCH (07:45)
[2019-06-16] MEDS: atorvastatin 10mg tablet PO SCH (07:45)
[2019-06-16] MEDS: benztropine 1mg tablet PO SCH ×2 (07:45→20:19)
[2019-06-16] MEDS: levoTHYROXINE 25mcg tablet PO SCH (07:45)
[2019-06-16] MEDS: oxcarbazepine 150mg tablet PO SCH ×2 (07:45→20:18)
[2019-06-16] MEDS: ECHINACEA PO SCH (07:53)
[2019-06-16] MEDS: famotidine 20mg tablet PO SCH ×2 (07:54→17:44)
[2019-06-16 08:11] VITALS: BP 134/53
--- NOTE | 2019-06-16 10:23 | NUR ---
reassessment: Pt PO 75-100% avg meals meeting needs. LBM 06/15. Receiving synthroid now w/ thyroidectomy hx. No nutrition concerns at this time. Will continue to monitor. Recommend: 1. continue regular diet 2. bowel care as needed if constipation 3. weekly weights Addendum: 06/16/19 at [address] Amended: Links added.
--- NOTE | 2019-06-16 16:23 | NUR ---
Nursing Progress Note: Jesu Legal hold: 5270 Client on involuntary status for: GD Report received from nurse with use of Rodrigo TRIVEDI RN. Why are they here: The patient was admitted from [facility] on a 5150 for gravely disabled. She was initially taken into [facility] crisis because she been becoming increasing unmanageable at home because of her psychotic symptoms. She was barricading the doors. She thought the water was being poisoned. She has been off her psychiatric medications for the past year. She was becoming agitated and abusive towards her daughter. The patient's daughter believed she could not provide the level of care the patient needed. She has a history of schizophrenia since her early 20s. She has been conserved in the past and has had numerous prior psychiatric hospitalizations. Assessment What has happened this shift: Patient is observed resting in bed peacefully at change of shift. She is seen in the community eating breakfast and she takes her medications as prescribed without incident. She is pleasant and cooperative with care. She denies SI/HI or A/VH. She does appear to be responding to internal stimuli and talking to people who are not there. Patient isolates throughout the day and is seen napping intermittently in her room, snoring loudly. She did not attend AM snack. Pt eats lunch in the community room. She is seen coloring in her room and in conversation exhibits tangential thinking and loose associations. She was present for group, however was observed sitting quietly and did not participate. S/I, H/I: none reported A/VH: none reported, observed talking to self Sleep: sleeps intermittently throughout the day ADL's: Independent Group attendance: yes but did not participate Were meds taken: Yes Any med S/E: none observed Mental Status Exam Appearance: wearing unit green scrubs and nonskid socks, hair combed and loose Eye contact: Direct Behavior: guarded, isolative Speech: minimal, soft, mumbled at times Mood: depressed Affect: flat Thought process: disorganized Thought Content: medications, "I am tired". Cognition: Impaired Insight: Poor Judgment: Poor Interventions PRN's used: none Therapeutic interventions: 1:1 therapeutic assessment, maintained safe therapeutic milieu, provided active listening with positive reinforcement, provided medication administration/education/monitoring as needed; Q15 safety checks. Restraints/seclusion/emergency medication: N/A Justification of Continued Inpatient Treatment: Continued therapeutic support and medication management needed to provide stabilization, prevent decompensation, improve coping mechanisms decreasing risk to patient and re-admittance.
[2019-06-16 19:56] VITALS: BP 118/64
[2019-06-16] MEDS: olanzapine 10mg tablet PO SCH (20:18)
[2019-06-16] MEDS: zolpidem 5mg tablet PO PRN (20:19)
--- NOTE | 2019-06-16 23:42 | NUR ---
Nursing Progress Note Legal hold: [id number] Client on involuntary status for: GD Report received from nurse with use of Rick TRIVEDI CRN. Why are they here: The patient was admitted from [facility] on a 5150 for gravely disabled. She was initially taken into [facility] Health crisis because she been becoming increasing unmanageable at home because of her psychotic symptoms. She was barricading the doors. She thought the water was being poisoned. She has been off her psychiatric medications for the past year. She was becoming agitated and abusive towards her daughter. The patient's daughter believed she could not provide the level of care the patient needed. She has a history of schizophrenia since her early 20s. She has been conserved in the past and has had numerous prior psychiatric hospitalizations. Assessment What has happened this shift: Patient was lying in bed at change of shift. pt was cooperative, friendly during 1:1 but was delusional, stating, "I can feel the vibrations coming through the wall." Pt was cooperative with hs meds and asked for ambied for sleep. pt asked about the medications given and then took them with no issue. Pt reported that she had a miller earlier but has since gone away. pt had snack with group but still doesn't interact with others much. S/I, H/I: none reported A/VH: denies Sleep: refer to sleep assessment ADL's: Independent Group attendance: no groups this shift Were meds taken: Yes Any med S/E: None observed, none reported Mental Status Exam Appearance: Clean and well groomed Eye contact: Direct Behavior: pleasant and cooperative Speech: quiet, mumbled Mood: "good" Affect: congruent to mood Thought process: Disorganized, tangential Thought Content: medications Cognition: Impaired Insight: Poor Judgment: Poor Interventions PRN's used: Tylenol Therapeutic interventions: 1:1 therapeutic assessment, maintained safe therapeutic milieu, provided active listening with positive reinforcement, provided medication administration/education/monitoring as needed; Q15 safety checks. Restraints/seclusion/emergency medication: N/A Justification of Continued Inpatient Treatment: Continued therapeutic support and medication management needed to provide stabilization, prevent decompensation, improve coping mechanisms decreasing risk to patient and re-admittance.
[2019-06-17 07:30] VITALS: BP 123/69
[2019-06-17] MEDS: ECHINACEA PO SCH (08:00)
[2019-06-17] MEDS: famotidine 20mg tablet PO SCH ×2 (08:04→17:12)
[2019-06-17] MEDS: loratadine/pseudoephedrine TAB.SR.12Hour PO SCH (08:04)
[2019-06-17] MEDS: levoTHYROXINE 25mcg tablet PO SCH (08:05)
[2019-06-17] MEDS: benztropine 1mg tablet PO SCH ×2 (08:05→20:12)
[2019-06-17] MEDS: oxcarbazepine 150mg tablet PO SCH ×2 (08:06→20:12)
[2019-06-17] MEDS: atorvastatin 10mg tablet PO SCH (08:06)
--- NOTE | 2019-06-17 16:08 | NUR ---
Nursing Progress Note Legal hold: [id number] Client on involuntary status for: GD Report received from nurse, Isa Meza RN with use of SBAR Why are they here: The patient was admitted from [facility] on a 5150 for gravely disabled. She was initially taken into [facility] Mental Health crisis because she been becoming increasing unmanageable at home because of her psychotic symptoms. She was barricading the doors. She thought the water was being poisoned. She has been off her psychiatric medications for the past year. She was becoming agitated and abusive towards her daughter. The patient's daughter believed she could not provide the level of care the patient needed. She has a history of schizophrenia since her early 20s. She has been conserved in the past and has had numerous prior psychiatric hospitalizations. Assessment What has happened this shift: Patient sleeping at change of shift. She is cooperative and calm taking her medications as prescribed during AM assessment and medication administration. Patient expresses her desire to leave and ask for information and resources for housing applications. S/I, H/I: none reported A/VH: none reported, observed talking to self Sleep: Brief naps throughout the day ADL's: Independent Group attendance: Yes Were Meds taken: Yes Any med S/E: none observed Mental Status Exam Appearance: green scrubs Eye contact: Direct Behavior: guarded, isolative Speech: minimal, soft, mumbled at times Mood: depressed Affect: flat Thought process: disorganized Thought Content: Housing Cognition: Impaired Insight: Poor Judgment: Poor Interventions PRN's used: none Therapeutic interventions: 1:1 therapeutic assessment, maintained safe therapeutic milieu, provided active listening with positive reinforcement, provided medication administration/education/monitoring as needed; encouraged to go to groups and participate; Q15 safety checks. Restraints/seclusion/emergency medication: N/A Justification of Continued Inpatient Treatment: Continued therapeutic support and medication management needed to provide stabilization, prevent decompensation, improve coping mechanisms decreasing risk to patient and re-admittance.
[2019-06-17] MEDS: LORazepam 1 MG tablet PO PRN (17:12)
[2019-06-17 19:38] VITALS: BP 112/58
[2019-06-17] MEDS: olanzapine 10mg tablet PO SCH (20:12)
[2019-06-17] MEDS: zolpidem 5mg tablet PO PRN (20:12)
[2019-06-17] MEDS: propranolol 10mg tablet PO SCH (21:00)
--- NOTE | 2019-06-17 23:00 | NUR ---
Nursing Progress Note Legal hold: [id number] Client on involuntary status for: GD Report received from nurse, TANYA Cabrera with use of SBAR Why are they here: The patient was admitted from [facility] on a 5150 for gravely disabled. She was initially taken into [facility] Mental Health crisis because she been becoming increasing unmanageable at home because of her psychotic symptoms. She was barricading the doors. She thought the water was being poisoned. She has been off her psychiatric medications for the past year. She was becoming agitated and abusive towards her daughter. The patient's daughter believed she could not provide the level of care the patient needed. She has a history of schizophrenia since her early 20s. She has been conserved in the past and has had numerous prior psychiatric hospitalizations. Assessment What has happened this shift: Patient sitting in chair in her room at change of shit examining various papers she has. pt attempted to ask questions regarding the pamphlets she has but was unable to articulate exactly what she wanted to ask. pt was compliant with all meds and requested ambien. pt was cooperative with 1:1 but unable to answer questions appropriately. S/I, H/I: none reported A/VH: none reported, observed talking to self Sleep: asleep now ADL's: Independent Group attendance: snack Were Meds taken: Yes Any med S/E: none observed Mental Status Exam Appearance: green scrubs Eye contact: Direct Behavior: guarded, isolative Speech: minimal, soft, mumbled at times Mood: depressed Affect: flat Thought process: disorganized Thought Content: Housing Cognition: Impaired Insight: Poor Judgment: Poor Interventions PRN's used: ambien Therapeutic interventions: 1:1 therapeutic assessment, maintained safe therapeutic milieu, provided active listening with positive reinforcement, provided medication administration/education/monitoring as needed; encouraged to go to groups and participate; Q15 safety checks. Restraints/seclusion/emergency medication: N/A Justification of Continued Inpatient Treatment: Continued therapeutic support and medication management needed to provide stabilization, prevent decompensation, improve coping mechanisms decreasing risk to patient and re-admittance.
[2019-06-18 08:00] VITALS: BP 137/77
[2019-06-18] MEDS: ECHINACEA PO SCH (08:00)
[2019-06-18] MEDS: atorvastatin 10mg tablet PO SCH (08:24)
[2019-06-18] MEDS: oxcarbazepine 150mg tablet PO SCH ×2 (08:24→20:19)
[2019-06-18] MEDS: famotidine 20mg tablet PO SCH ×2 (08:25→17:20)
[2019-06-18] MEDS: loratadine/pseudoephedrine TAB.SR.12Hour PO SCH (08:25)
[2019-06-18] MEDS: propranolol 10mg tablet PO SCH ×3 (08:26→20:20)
[2019-06-18] MEDS: levoTHYROXINE 25mcg tablet PO SCH (08:29)
--- NOTE | 2019-06-18 16:48 | NUR ---
Nursing Progress Note Legal hold: [id number] Client on involuntary status for: GD Report received from nurse, TANYA Blandon with use of SBAR Why are they here: The patient was admitted from [facility] on a 5150 for gravely disabled. She was initially taken into [facility] Mental Health crisis because she been becoming increasing unmanageable at home because of her psychotic symptoms. She was barricading the doors. She thought the water was being poisoned. She has been off her psychiatric medications for the past year. She was becoming agitated and abusive towards her daughter. The patient's daughter believed she could not provide the level of care the patient needed. She has a history of schizophrenia since her early 20s. She has been conserved in the past and has had numerous prior psychiatric hospitalizations. Assessment What has happened this shift: Patient sleeping at change of shift. She is calm throughout the AM assessment and medication administration. Patient has been on propranolol today and has been sleeping more today. VS WNL's. S/I, H/I: none reported A/VH: observed pt RIS Sleep: Sleeping most of the day ADL's: Independent Group attendance: Yes Were Meds taken: Yes Any med S/E: none observed Mental Status Exam Appearance: green scrubs Eye contact: Direct Behavior: guarded, isolative Speech: minimal, soft, rambles Mood: depressed Affect: flat Thought process: disorganized Thought Content: Housing Cognition: Impaired Insight: Poor Judgment: Poor Interventions PRN's used: none Therapeutic interventions: 1:1 therapeutic assessment, maintained safe therapeutic milieu, provided active listening with positive reinforcement, provided medication administration/education/monitoring as needed; encouraged to go to groups and participate; Q15 safety checks. Restraints/seclusion/emergency medication: N/A Justification of Continued Inpatient Treatment: Continued therapeutic support and medication management needed to provide stabilization, prevent decompensation, improve coping mechanisms decreasing risk to patient and re-admittance.
[2019-06-18] MEDS ORDERED: fluconazole 150mg tablet PO ONE (17:40)
[2019-06-18 19:46] VITALS: BP 111/60
[2019-06-18] MEDS: olanzapine 10mg tablet PO SCH (20:19)
[2019-06-18] MEDS: zolpidem 5mg tablet PO PRN (20:19)
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
[2019-06-19] MEDS: ECHINACEA PO SCH (08:00)
[2019-06-19 08:29] VITALS: BP 122/67
[2019-06-19] MEDS: atorvastatin 10mg tablet PO SCH (09:30)
[2019-06-19] MEDS: propranolol 10mg tablet PO SCH ×2 (09:30→13:38)
[2019-06-19] MEDS: levoTHYROXINE 25mcg tablet PO SCH (09:32)
[2019-06-19] MEDS: famotidine 20mg tablet PO SCH ×2 (09:32→17:07)
[2019-06-19] MEDS: oxcarbazepine 150mg tablet PO SCH ×2 (09:33→20:23)
[2019-06-19] MEDS: loratadine/pseudoephedrine TAB.SR.12Hour PO SCH (09:33)
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
[2019-06-19 19:48] VITALS: BP 131/73
[2019-06-19] MEDS: zolpidem 5mg tablet PO PRN (20:22)
[2019-06-19] MEDS: olanzapine 10mg tablet PO SCH (20:23)
--- NOTE | 2019-06-19 20:47 | NUR ---
Nursing Progress Note Legal hold: [phone] Client on involuntary status for: GD Report received from nurse, Rodrigo RN with use of SBAR Why are they here: The patient was admitted from [facility] on a 5150 for gravely disabled. She was initially taken into [facility] Mental Health crisis because she been becoming increasing unmanageable at home because of her psychotic symptoms. She was barricading the doors. She thought the water was being poisoned. She has been off her psychiatric medications for the past year. She was becoming agitated and abusive towards her daughter. The patient's daughter believed she could not provide the level of care the patient needed. She has a history of schizophrenia since her early 20s. She has been conserved in the past and has had numerous prior psychiatric hospitalizations. Assessment The patient was up on the unit on the periphery. She appeared clean and appropriately dressed for the unit. She had a blunted affect and gave intermittent eye contact during the assessment. When asked how her mood was she stated, "I'm Okay. If I have a diabetic mood swing it's because of smells" She reports, "I'm easy going all the time" She was not able to formulate a plan for self care once released from the hospital S/I, H/I: none reported A/VH: none reported Sleep: ADL's: Independent Group attendance: yes Were Meds taken: Yes Any med S/E: none observed Mental Status Exam Appearance: green scrubs Eye contact: Direct Behavior:isolative and withdrawn Speech: spontaneous, coherent Mood: depressed Affect: Blunted Thought process: disorganized, delusional Thought Content: delusional comments about smells causing mood swings Cognition: Impaired Insight: Poor Judgment: Poor Interventions PRN's used: none Therapeutic interventions: 1:1 therapeutic assessment, maintained safe therapeutic milieu, provided active listening with positive reinforcement, provided medication administration/education/monitoring as needed; encouraged to go to groups and participate; Q15 safety checks. Restraints/seclusion/emergency medication: N/A Justification of Continued Inpatient Treatment: Continued therapeutic support and medication management needed to provide stabilization, prevent decompensation, improve coping mechanisms decreasing risk to patient and re-admittance. Patient is to return to living with daughter sometime next week.
[2019-06-20 08:00] VITALS: BP 143/70
[2019-06-20] MEDS: ECHINACEA PO SCH (08:00)
[2019-06-20] MEDS: atorvastatin 10mg tablet PO SCH (08:01)
[2019-06-20] MEDS: famotidine 20mg tablet PO SCH ×2 (08:01→17:30)
[2019-06-20] MEDS: oxcarbazepine 150mg tablet PO SCH ×2 (08:01→20:49)
[2019-06-20] MEDS: levoTHYROXINE 25mcg tablet PO SCH (08:01)
[2019-06-20] MEDS: loratadine/pseudoephedrine TAB.SR.12Hour PO SCH (08:02)
--- NOTE | 2019-06-20 12:56 | NUR ---
DISCHARGE PLANNING Attempted to reach Ct's daughter, Mary Jo (ph# [phone], [phone]) to discuss discharge plan when Ct is ready. Left message on both numbers requesting a call back. MARIO Blue
--- NOTE | 2019-06-20 16:57 | NUR ---
Nursing Progress Note Legal hold: [id number] Client on involuntary status for: GD Report received from TANYA Blandon with use of SBAR Why are they here: The patient was admitted from [facility] on a 5150 for gravely disabled. She was initially taken into [facility] Mental Health crisis because she been becoming increasing unmanageable at home because of her psychotic symptoms. She was barricading the doors. She thought the water was being poisoned. She has been off her psychiatric medications for the past year. She was becoming agitated and abusive towards her daughter. The patient's daughter believed she could not provide the level of care the patient needed. She has a history of schizophrenia since her early 20s. She has been conserved in the past and has had numerous prior psychiatric hospitalizations. Assessment What has happened this shift: The patient was asleep at change of shift. She is medication compliant. Less disorganized and tangential in her thinking. Still isolates to her room at times. Attends some groups. No other changes. S/I, H/I: none reported A/VH: none reported Sleep: Napped ADL's: Independent Group attendance: yes Were Meds taken: Yes Any med S/E: none observed Mental Status Exam Appearance: green scrubs Eye contact: Direct Behavior:isolative and withdrawn Speech: Clear Mood: depressed Affect: Constricted Thought process: disorganized, delusional Thought Content: delusional comments about smells causing mood swings Cognition: Impaired Insight: Poor Judgment: Poor Interventions PRN's used: none Therapeutic interventions: 1:1 therapeutic assessment, maintained safe therapeutic milieu, provided active listening with positive reinforcement, provided medication administration/education/monitoring as needed; encouraged to go to groups and participate; Q15 safety checks. Restraints/seclusion/emergency medication: N/A Justification of Continued Inpatient Treatment: Continued therapeutic support and medication management needed to provide stabilization, prevent decompensation, improve coping mechanisms decreasing risk to patient and re-admittance. Patient is to return to living with daughter sometime next week.
[2019-06-20 20:00] VITALS: BP 142/82
[2019-06-20] MEDS: olanzapine 10mg tablet PO SCH (20:49)
[2019-06-20] MEDS: zolpidem 5mg tablet PO PRN (20:56)
--- NOTE | 2019-06-21 02:39 | NUR ---
Nursing Progress Note Legal hold: 5270 Client on involuntary status for: GD Report received from TANYA Burgos with use of SBAR Why are they here: The patient was admitted from [facility] on a 5150 for gravely disabled. She was initially taken into [facility] Mental Health crisis because she been becoming increasing unmanageable at home because of her psychotic symptoms. She was barricading the doors. She thought the water was being poisoned. She has been off her psychiatric medications for the past year. She was becoming agitated and abusive towards her daughter. The patient's daughter believed she could not provide the level of care the patient needed. She has a history of schizophrenia since her early 20s. She has been conserved in the past and has had numerous prior psychiatric hospitalizations. Assessment What happened this shift: Pt is sitting on her bed talking to herself at shift change. Pt minimally engaged in conversation and continued to sit and talk about her sisters being nurses and "we are all sister-sisters." Pt was medication compliant and went to sleep after HS med pass. Pt continues to sleep restfully as of this writing. S/I, H/I: None reported or observed. A/VH: None reported or observed. Sleep: See Sleep Assessment notation ADL's: Independent Group attendance: hourly shift, no group Were Meds taken: Medication compliant Any med S/E: None reported or observed. Mental Status Exam Appearance: Wearing green unit scrubs, hair brushed Eye contact: Direct Behavior: Isolative, withdrawn Speech: Spontaneous, coherent Mood: Cooperative, quiet Affect: Flat Thought process: Disorganized, delusional Thought Content: Delusional Cognition: Impaired Insight: Poor Judgment: Poor Interventions PRN's used: Shaquille Therapeutic interventions: 1:1 therapeutic assessment, maintained safe therapeutic milieu, provided active listening with positive reinforcement, provided medication administration/education/monitoring as needed; encouraged to go to groups and participate; Q15 safety checks. Restraints/seclusion/emergency medication: N/A Justification of Continued Inpatient Treatment: Continued therapeutic support and medication management needed to provide stabilization, prevent decompensation, improve coping mechanisms decreasing risk to patient and re-admittance. Patient is to return to living with daughter sometime next week. Addendum: 06/21/19 at 0324 by Selene Patton RN Administered 650mg Tylenol, pt c/o of bilateral hip pain. Pt was rambling about her brothers and the newspaper and she needed to get to one.
[2019-06-21] MEDS: acetaminophen 325mg tablet PO PRN (03:19)
[2019-06-21] MEDS: levoTHYROXINE 25mcg tablet PO SCH (07:09)
[2019-06-21 08:00] VITALS: BP 129/64
[2019-06-21] MEDS: ECHINACEA PO SCH (08:00)
[2019-06-21] MEDS: atorvastatin 10mg tablet PO SCH (08:10)
[2019-06-21] MEDS: loratadine/pseudoephedrine TAB.SR.12Hour PO SCH (08:10)
[2019-06-21] MEDS: famotidine 20mg tablet PO SCH ×2 (08:10→17:04)
[2019-06-21] MEDS: oxcarbazepine 150mg tablet PO SCH (08:10)
[2019-06-21] MEDS ORDERED: benzocaine/menthol oral lozeng 1 EACH BOX MM PRN (14:40)
--- NOTE | 2019-06-21 15:18 | NUR ---
Nursing Progress Note Legal hold: 5270 Client on involuntary status for: GD Report received from TANYA Johnson with use of SBAR Why are they here: The patient was admitted from [facility] on a 5150 for gravely disabled. She was initially taken into [facility] Health crisis because she been becoming increasing unmanageable at home because of her psychotic symptoms. She was barricading the doors. She thought the water was being poisoned. She has been off her psychiatric medications for the past year. She was becoming agitated and abusive towards her daughter. The patient's daughter believed she could not provide the level of care the patient needed. She has a history of schizophrenia since her early 20s. She has been conserved in the past and has had numerous prior psychiatric hospitalizations. Assessment What has happened this shift: The patient was asleep at change of shift. She is medication compliant. Less disorganized and tangential in her thinking. Able to answer most questions coherently. Still isolates to her room at times. Attends some groups. No other changes. Attends groups and meals and is polite and conversant with her peers. S/I, H/I: none reported A/VH: none reported Sleep: Napped ADL's: Independent Group attendance: yes Were Meds taken: Yes Any med S/E: none observed Mental Status Exam Appearance: green scrubs Eye contact: Direct Behavior:isolative and withdrawn at times Speech: Clear Mood: depressed Affect: Constricted Thought process: disorganized, delusional Thought Content: discharge Cognition: Impaired Insight: Poor Judgment: Poor Interventions PRN's used: none Therapeutic interventions: 1:1 therapeutic assessment, maintained safe therapeutic milieu, provided active listening with positive reinforcement, provided medication administration/education/monitoring as needed; encouraged to go to groups and participate; Q15 safety checks. Restraints/seclusion/emergency medication: N/A Justification of Continued Inpatient Treatment: Continued therapeutic support and medication management needed to provide stabilization, prevent decompensation, improve coping mechanisms decreasing risk to patient and re-admittance. Patient is to return to living with daughter sometime next week
--- NOTE | 2019-06-21 15:32 | NUR ---
DISCHARGE PLANNING Spoke to Linda Camargo's daughter (ph# [phone]) and informed her that Ct seems to be doing better. Asked her to come in and visit Ct. She reported she can visit on Monday, however, it will likely be outside of visiting hours. She will call rfp writer on Monday to give an ETA. She reported Ct can return to her home once she is stabilized. MARIO Blue
[2019-06-21 20:00] VITALS: BP 121/70
[2019-06-21] MEDS: OLANZAPINE 5 MG TABLET PO SCH (20:54)
[2019-06-21] MEDS: olanzapine 10mg tablet PO SCH (20:54)
[2019-06-21] MEDS: zolpidem 5mg tablet PO PRN (20:55)
--- NOTE | 2019-06-22 01:39 | NUR ---
Nursing Progress Note Legal hold: [phone] Client on involuntary status for: GD Report received from TANYA Burgos with use of SBAR Why are they here: The patient was admitted from [facility] on a 5150 for gravely disabled. She was initially taken into [facility] Mental Health crisis because she been becoming increasing unmanageable at home because of her psychotic symptoms. She was barricading the doors. She thought the water was being poisoned. She has been off her psychiatric medications for the past year. She was becoming agitated and abusive towards her daughter. The patient's daughter believed she could not provide the level of care the patient needed. She has a history of schizophrenia since her early 20s. She has been conserved in the past and has had numerous prior psychiatric hospitalizations. Assessment What happened this shift: Pt was visible on unit no distress noted. Pt was later observed sitting in the group room with other peers. Pt was medication compliant and took her meds in the group room. Pt presented brighter this shift. Pt's Trileptal was increased to 300 mg and changed to 0800 administration daily. Zyprexa was also increased to 35 mg hs. S/I, H/I: None reported or observed. A/VH: None reported or observed. Sleep: See Sleep Assessment notation. PRN Ambien administered. ADL's: Independent Group attendance: operations supervisor 2nd shift, no group Were Meds taken: Medication compliant Any med S/E: None reported or observed. Mental Status Exam Appearance: Wearing green unit scrubs, hair brushed Eye contact: Direct Behavior: Cooperative, withdrawn Speech: Spontaneous, coherent Mood: Affect: Constricted with some brightening Thought process: Disorganized, delusional Thought Content: Delusional Cognition: Alert Insight: Poor Judgment: Poor Interventions PRN's used: Ambien Therapeutic interventions: 1:1 therapeutic assessment, maintained safe therapeutic milieu, provided active listening with positive reinforcement, provided medication administration/education/monitoring as needed; encouraged to go to groups and participate; Q15 safety checks. Restraints/seclusion/emergency medication: N/A Justification of Continued Inpatient Treatment: Continued therapeutic support and medication management needed to provide stabilization, prevent decompensation, improve coping mechanisms decreasing risk to patient and re-admittance. Patient is to return to living with daughter sometime next week.
[2019-06-22] MEDS: levoTHYROXINE 25mcg tablet PO SCH (07:09)
[2019-06-22 08:00] VITALS: BP 165/78
[2019-06-22] MEDS: ECHINACEA PO SCH (08:00)
[2019-06-22] MEDS: oxcarbazepine 150mg tablet PO SCH ×2 (08:04→20:53)
[2019-06-22] MEDS: loratadine/pseudoephedrine TAB.SR.12Hour PO SCH (08:04)
[2019-06-22] MEDS: famotidine 20mg tablet PO SCH ×2 (08:04→17:08)
[2019-06-22] MEDS: atorvastatin 10mg tablet PO SCH (08:04)
[2019-06-22] MEDS: emollient combination-Eucerin 250 ML LOTION TP SCH (08:37)
[2019-06-22 08:45] VITALS: BP 117/69
--- NOTE | 2019-06-22 13:55 | NUR ---
Nursing Progress Note Legal hold: [phone] Client on involuntary status for: GD Report received from TANYA Johnson with use of SBAR Why are they here: The patient was admitted from [facility] on a 5150 for gravely disabled. She was initially taken into [facility] Mental Health crisis because she been becoming increasing unmanageable at home because of her psychotic symptoms. She was barricading the doors. She thought the water was being poisoned. She has been off her psychiatric medications for the past year. She was becoming agitated and abusive towards her daughter. The patient's daughter believed she could not provide the level of care the patient needed. She has a history of schizophrenia since her early 20s. She has been conserved in the past and has had numerous prior psychiatric hospitalizations. Assessment What has happened this shift: The patient was asleep at change of shift. She is medication compliant. Less disorganized and tangential in her thinking. Able to answer most questions coherently. Still isolates to her room at times. Attended group. Became upset during lunch when a fellow patient had a choking episode. She was quite upset and was able to verbalize how she felt. When asked if she would like something for anxiety she stated, "No, not right now, but I will ask you for it if I feel worse later." S/I, H/I: none reported A/VH: none reported Sleep: Napped ADL's: Independent Group attendance: yes Were Meds taken: Yes Any med S/E: none observed Mental Status Exam Appearance: green scrubs Eye contact: Direct Behavior:isolative and withdrawn at times Speech: Clear Mood: depressed Affect: Constricted Thought process: disorganized, delusional Thought Content: discharge Cognition: Impaired Insight: Poor Judgment: Poor Interventions PRN's used: none Therapeutic interventions: 1:1 therapeutic assessment, maintained safe therapeutic milieu, provided active listening with positive reinforcement, provided medication administration/education/monitoring as needed; encouraged to go to groups and participate; Q15 safety checks. Restraints/seclusion/emergency medication: N/A Justification of Continued Inpatient Treatment: Continued therapeutic support and medication management needed to provide stabilization, prevent decompensation, improve coping mechanisms decreasing risk to patient and re-admittance. Patient is to return to living with daughter sometime next week
[2019-06-22] MEDS: olanzapine 10mg tablet PO SCH (20:52)
[2019-06-22] MEDS: zolpidem 5mg tablet PO PRN (20:53)
[2019-06-22] MEDS: OLANZAPINE 5 MG TABLET PO SCH (20:53)
--- NOTE | 2019-06-22 22:37 | NUR ---
Nursing Progress Note Legal hold: [phone] Client on involuntary status for: GD Report received from TANYA Burgos with use of SBAR Why are they here: The patient was admitted from [facility] on a 5150 for gravely disabled. She was initially taken into [facility] Mental Health crisis because she been becoming increasing unmanageable at home because of her psychotic symptoms. She was barricading the doors. She thought the water was being poisoned. She has been off her psychiatric medications for the past year. She was becoming agitated and abusive towards her daughter. The patient's daughter believed she could not provide the level of care the patient needed. She has a history of schizophrenia since her early 20s. She has been conserved in the past and has had numerous prior psychiatric hospitalizations. Assessment What happened this shift: Pt up in group room at shift change. Pt remains out of her room for early part of shift, then retires after HS snack and medications. Pt is cooperative and compliant and is observed later sitting at table coloring with another peer. Pt requests headset and wears them for awhile prior to going to bed. Pt is sleeping comfortably as of this writing and will continue to monitor throughout shift. S/I, H/I: None reported or observed. A/VH: None reported or observed. Sleep: See Sleep Assessment notation. PRN Ambien administered. ADL's: Independent Group attendance: maintenance technician 2nd shift, no group Were Meds taken: Medication compliant Any med S/E: None reported or observed. Mental Status Exam Appearance: Clean, wearing green unit scrubs Eye contact: Direct Behavior: Cooperative, withdrawn, but more engaging with peers Speech: Spontaneous, sometimes mumbled Mood: Affect: Constricted with some brightening Thought process: Delusional Thought Content: Delusional Cognition: Alert Insight: Poor Judgment: Poor Interventions PRN's used: Ambien Therapeutic interventions: 1:1 therapeutic assessment, maintained safe therapeutic milieu, provided active listening with positive reinforcement, provided medication administration/education/monitoring as needed; encouraged to go to groups and participate; Q15 safety checks. Restraints/seclusion/emergency medication: N/A Justification of Continued Inpatient Treatment: Continued therapeutic support and medication management needed to provide stabilization, prevent decompensation, and improve coping mechanisms decreasing risk to patient and re-admittance. Patient is to return to living with daughter sometime next week.
[2019-06-22] MEDS: diphenhydrAMINE 25mg capsule PO PRN (23:43)
--- NOTE | 2019-06-22 23:47 | NUR ---
Pt awoke c/o of legs feeling tingling. Negative for cogwheel. Administered 50mg Benadryl. Will continue to monitor.
[2019-06-23] MEDS: LORazepam 1 MG tablet PO PRN ×2 (01:04→17:15)
[2019-06-23 07:38] VITALS: BP 113/72
[2019-06-23] MEDS: loratadine/pseudoephedrine TAB.SR.12Hour PO SCH (07:41)
[2019-06-23] MEDS: atorvastatin 10mg tablet PO SCH (07:41)
[2019-06-23] MEDS: levoTHYROXINE 25mcg tablet PO SCH (07:41)
[2019-06-23] MEDS: famotidine 20mg tablet PO SCH ×2 (07:41→17:17)
[2019-06-23] MEDS: oxcarbazepine 150mg tablet PO SCH ×2 (07:42→20:00)
[2019-06-23] MEDS: ECHINACEA PO SCH (07:43)
[2019-06-23] MEDS: emollient combination-Eucerin 250 ML LOTION TP SCH (07:44)
--- NOTE | 2019-06-23 11:26 | NUR ---
Nursing Progress Note Jesu Legal hold: [phone] Client on involuntary status for: GD Report received from Isa Meza RN with use of SBAR Why are they here: The patient was admitted from [facility] on a 5150 for gravely disabled. She was initially taken into [facility] Mental Health crisis because she been becoming increasing unmanageable at home because of her psychotic symptoms. She was barricading the doors. She thought the water was being poisoned. She has been off her psychiatric medications for the past year. She was becoming agitated and abusive towards her daughter. The patient's daughter believed she could not provide the level of care the patient needed. She has a history of schizophrenia since her early 20s. She has been conserved in the past and has had numerous prior psychiatric hospitalizations. Assessment: Client was in bed resting with eyes closed and even, unlabored respirations noted. Client was awake for assessment and medications and no behavioral issues were noted or reported from prior shift. Client appears tired today and has been resting in her room with no problems noted. S/I, H/I: None reported or observed. A/VH: None reported or observed. Sleep: 4.75 last shift. Rested this shift. ADL's: Independent Group attendance: no group attendance this am. Were Meds taken: Medication compliant. Refused Eucerin and OTC med this am. Any med S/E: None reported or observed. Mental Status Exam Appearance: Clean, wearing green unit scrubs Eye contact: Direct Behavior: Cooperative, withdrawn, but more engaging with peers Speech: Spontaneous, sometimes mumbled Mood: Affect: Constricted with some brightening Thought process: Delusional Thought Content: Delusional Cognition: Alert Insight: Poor Judgment: Poor Interventions PRN's used: Shaquille Therapeutic interventions: 1:1 therapeutic assessment, maintained safe therapeutic milieu, provided active listening with positive reinforcement, provided medication administration/education/monitoring as needed; encouraged to go to groups and participate; Q15 safety checks. Restraints/seclusion/emergency medication: N/A Justification of Continued Inpatient Treatment: Continued therapeutic support and medication management needed to provide stabilization, prevent decompensation, and improve coping mechanisms decreasing risk to patient and re-admittance. Patient is to return to living with daughter sometime next week. Addendum: 06/23/19 at 1844 by Gladys Cardenas RN Pt took her evening medication as ordered without incident. She is pleasant and cooperative with care.
--- NOTE | 2019-06-23 11:52 | NUR ---
Reassessment: Pt continues with 75-100% PO intake meeting nutrient needs. LBM 06/21. No nutrition diagnosis at this time. Will continue to follow. Recommend: 1. continue regular diet 2. bowel care as needed if constipation 3. weekly weights Addendum: 06/23/19 at [address] Amended: Links added.
[2019-06-23 19:57] VITALS: BP 137/80
[2019-06-23] MEDS: olanzapine 10mg tablet PO SCH (20:22)
[2019-06-23] MEDS: OLANZAPINE 5 MG TABLET PO SCH (21:00)
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
[2019-06-24] MEDS: famotidine 20mg tablet PO SCH ×2 (07:12→17:52)
[2019-06-24] MEDS: levoTHYROXINE 25mcg tablet PO SCH (07:12)
[2019-06-24] MEDS: loratadine/pseudoephedrine TAB.SR.12Hour PO SCH (07:13)
[2019-06-24] MEDS: atorvastatin 10mg tablet PO SCH (07:13)
[2019-06-24] MEDS: oxcarbazepine 150mg tablet PO SCH ×2 (07:14→20:22)
[2019-06-24] MEDS: ECHINACEA PO SCH (07:14)
[2019-06-24] MEDS: emollient combination-Eucerin 250 ML LOTION TP SCH (07:15)
[2019-06-24 08:00] VITALS: BP 114/60
--- NOTE | 2019-06-24 10:29 | NUR ---
Ct's daughter, Mary Jo, left a message stating she will visit [facility] after noon today. Called her back and left a message with the address. MARIO Blue
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
--- NOTE | 2019-06-24 14:01 | NUR ---
Discharge Planning Linda's daughter, Mary Jo, came to visit Ct. Met with Mary Jo. She brought in a [employer] Medical Evaluation. She reported she talked to Dr Castro who suggested she bring it in and he will complete it? Mary Jo reported Ct has a hemorrhoid and she believes she is in pain and this is contributing to Ct's irritability. Informed her senior grant writer will pass this along to staff. Mary Jo reported she is comfortable with Ct returning home. She does not think she can come pick her up until possibly on Monday. Binder Stripper [employer] attempted to reach [facility] to make follow up appts and they are not open today due to the holiday. Binder Stripper Machine will call Mary Jo and let her know when Ct is going to get discharged. MARIO Blue
--- NOTE | 2019-06-24 14:11 | NUR ---
Pt observed in the TV room visiting with her daughter. No distress observed.
[2019-06-24] MEDS: olanzapine 10mg tablet PO SCH (20:20)
[2019-06-24] MEDS: OLANZAPINE 5 MG TABLET PO SCH (20:21)
[2019-06-24 20:55] VITALS: BP 119/77
[2019-06-24] MEDS: mag hydrox/Alum hydrox/simeth 30ml oral suspension PO PRN (23:53)
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
[2019-06-25] MEDS: oxcarbazepine 150mg tablet PO SCH ×2 (07:16→20:39)
[2019-06-25] MEDS: loratadine/pseudoephedrine TAB.SR.12Hour PO SCH (07:16)
[2019-06-25] MEDS: famotidine 20mg tablet PO SCH ×2 (07:16→17:34)
[2019-06-25] MEDS: levoTHYROXINE 25mcg tablet PO SCH (07:16)
[2019-06-25] MEDS: atorvastatin 10mg tablet PO SCH (07:16)
[2019-06-25 07:33] VITALS: BP 130/78
[2019-06-25] MEDS: emollient combination-Eucerin 250 ML LOTION TP SCH (08:59)
--- NOTE | 2019-06-25 09:07 | NUR ---
DISCHARGE PLANNING Called [facility] to discuss discharge planning. [facility] can provide transport, they just ask for 24 hours notice. Sandra will call back with follow up appt. MARIO Blue
--- NOTE | 2019-06-25 10:29 | NUR ---
DISCHARGE PLANNING Per Dr Castro, plan to D/C on . Called [facility] to arrange for transport home and follow up appts. They will call back tomorrow with an ETA for . Follow up appt scheduled for 07/04/19 at 8 am at [facility]. Called Linda's daughter, Mary Jo ([phone]), to apprise her of the plan. MARIO Blue
--- NOTE | 2019-06-25 18:22 | NUR ---
Nursing Progress Note Legal hold: [id number] Client on involuntary status for: GD Report received from EMMA Blandon with use of SBAR Why are they here: The patient was admitted from [facility] on a 5150 for gravely disabled. She was initially taken into [facility] Mental Health crisis because she been becoming increasing unmanageable at home because of her psychotic symptoms. She was barricading the doors. She thought the water was being poisoned. She has been off her psychiatric medications for the past year. She was becoming agitated and abusive towards her daughter. The patient's daughter believed she could not provide the level of care the patient needed. She has a history of schizophrenia since her early 20s. She has been conserved in the past and has had numerous prior psychiatric hospitalizations. Assessment: Pt sleeping at the change of shift. She was compliant with medication administration. She was pleasant and cooperative with assessment. She presents with a constricted affect and was noted to smile several times. She did not report hearing voices or having SI. Her thoughts appeared more organized that when this securities underwriter last saw her two weeks ago. She was up walking in the hallway and watched TV in the group room. She attended all groups. She reported congestion and wanted a breathe right nasal strip. This was unavailable so she requested a bandaid to make her own. She said that the bandaid on her nose improved her breathing. Will continue to monitor. S/I, H/I: None reported or observed. A/VH: Pt did not report A/V H Sleep: Intermittent naps ADL's: Independent Group attendance: Yes Were Meds taken: Medication compliant. Any med S/E: None reported or observed. Mental Status Exam Appearance: Clean, wearing green scrubs Eye contact: Direct Behavior: Walking the halls, watching TV in group room. Pleasant and cooperative Speech: Normal rate and rhythm Mood: Pleasant Affect: Appropriate to mood Thought process: More linear than has been seen previously Thought Content: wanted to make her own nasal strip out of a bandaid. Cognition: Alert Insight: Poor Judgment: Poor Interventions PRN's used: none Therapeutic interventions: 1:1 therapeutic assessment, maintained safe therapeutic milieu, provided active listening with positive reinforcement, provided medication administration/education/monitoring as needed; encouraged to go to groups and participate; Q15 safety checks. Restraints/seclusion/emergency medication: N/A Justification of Continued Inpatient Treatment: Continued therapeutic support and medication management needed to provide stabilization, prevent decompensation, and improve coping mechanisms decreasing risk to patient and re-admittance. The plan is for the patient to return to living with daughter sometime this week.
[2019-06-25 20:00] VITALS: BP 121/72
[2019-06-25] MEDS: olanzapine 10mg tablet PO SCH (20:35)
--- NOTE | 2019-06-25 22:10 | NUR ---
Nursing Progress Note Legal hold: [id number] Client on involuntary status for: GD Report received from TANYA Burgos with use of SBAR Why are they here: The patient was admitted from [facility] on a 5150 for gravely disabled. She was initially taken into [facility] Mental Health crisis because she been becoming increasing unmanageable at home because of her psychotic symptoms. She was barricading the doors. She thought the water was being poisoned. She has been off her psychiatric medications for the past year. She was becoming agitated and abusive towards her daughter. The patient's daughter believed she could not provide the level of care the patient needed. She has a history of schizophrenia since her early 20s. She has been conserved in the past and has had numerous prior psychiatric hospitalizations. Assessment: What happened this shift: The patient was seen in the group room at shift change. 1:1 performed at bedside. She reports that she had a "pretty good day." She says that she went to group today, "I saw a monster truck and thought it was mine. we don't have any foundations like that. At least none that I can stand up to." The patient reports that she's leaving , and is happy about it. The patient had a snack, took her meds and went to bed. S/I, H/I: None reported or observed. A/VH: None reported or observed. Sleep: See sleep hours ADL's: Independent Group attendance: No groups at night. Were Meds taken: Yes Any med S/E: None reported or observed. Mental Status Exam Appearance: Clean, wearing appropriate street clothes. Eye contact: Direct Behavior: Persecutory, paranoid. Speech: Spontaneous, sometimes mumbled Mood: Depressed.. Affect: Blunted Thought process: Delusional Thought Content: Delusional Cognition: Alert Insight: Poor Judgment: Poor Interventions PRN's used: none Therapeutic interventions: 1:1 therapeutic assessment, maintained safe therapeutic milieu, provided active listening with positive reinforcement, provided medication administration/education/monitoring as needed; encouraged to go to groups and participate; Q15 safety checks. Restraints/seclusion/emergency medication: N/A Justification of Continued Inpatient Treatment: Continued therapeutic support and medication management needed to provide stabilization, prevent decompensation, and improve coping mechanisms decreasing risk to patient and re-admittance. Patient is to return to living with daughter sometime next week.
[2019-06-26] MEDS: oxcarbazepine 150mg tablet PO SCH ×2 (07:58→20:56)
[2019-06-26] MEDS: atorvastatin 10mg tablet PO SCH (07:59)
[2019-06-26] MEDS: loratadine/pseudoephedrine TAB.SR.12Hour PO SCH (07:59)
[2019-06-26] MEDS: levoTHYROXINE 25mcg tablet PO SCH (07:59)
[2019-06-26] MEDS: famotidine 20mg tablet PO SCH ×2 (07:59→17:45)
[2019-06-26] MEDS: emollient combination-Eucerin 250 ML LOTION TP SCH (08:03)
[2019-06-26 08:08] VITALS: BP 104/60
--- NOTE | 2019-06-26 13:18 | NUR ---
DISCHARGE PLANNING Called [facility] to arrange for transport. Ct will be picked up at 10 am on 06/27/19. MARIO Blue
--- NOTE | 2019-06-26 16:46 | NUR ---
Nursing Progress Note Legal hold: [id number] Client on involuntary status for: GD Report received from TANYA Blandon with use of SBAR Why are they here: The patient was admitted from [facility] on a 5150 for gravely disabled. She was initially taken into [facility] Mental Health crisis because she been becoming increasing unmanageable at home because of her psychotic symptoms. She was barricading the doors. She thought the water was being poisoned. She has been off her psychiatric medications for the past year. She was becoming agitated and abusive towards her daughter. The patient's daughter believed she could not provide the level of care the patient needed. She has a history of schizophrenia since her early 20s. She has been conserved in the past and has had numerous prior psychiatric hospitalizations. Assessment: What happened this shift: Patient is observed sleeping at change of shift. She takes her medications and is resistive stating that the meds are not her meds and that she does not take the meds that are being offered to her. She takes them and then returns to her room where she spends most of the day. She does not join outdoor activity. She does leave her room for meals. S/I, H/I: None reported or observed. A/VH: None reported or observed. Sleep: 8.25hrs NOC ADL's: Independent Group attendance: no Were Meds taken: Yes Any med S/E: None reported or observed. Mental Status Exam Appearance: Clean, appropriate Eye contact: Direct Behavior: isolative, questioning Speech: answers questions but is not conversational Mood: happy to discharge Affect: Blunted Thought process: paranoid Thought Content: does not believe meds are her meds Cognition: A/O x 3 Insight: Poor Judgment: Poor Interventions PRN's used: none Therapeutic interventions: 1:1 therapeutic assessment, maintained safe therapeutic milieu, provided active listening with positive reinforcement, provided medication administration/education/monitoring as needed; encouraged to go to groups and participate; Q15 safety checks. Restraints/seclusion/emergency medication: N/A Justification of Continued Inpatient Treatment: Continued therapeutic support and medication management needed to provide stabilization, prevent decompensation, and improve coping mechanisms decreasing risk to patient and re-admittance. Patient is to return to living with daughter.
[2019-06-26 20:00] VITALS: BP 143/71
[2019-06-26] MEDS: olanzapine 10mg tablet PO SCH (20:55)
--- NOTE | 2019-06-27 01:01 | NUR ---
Nursing Progress Note Legal hold: [id number] Client on involuntary status for: GD Report received from TANYA Blandon with use of SBAR Why are they here: The patient was admitted from [facility] on a 5150 for gravely disabled. She was initially taken into [facility] Mental Health crisis because she been becoming increasing unmanageable at home because of her psychotic symptoms. She was barricading the doors. She thought the water was being poisoned. She has been off her psychiatric medications for the past year. She was becoming agitated and abusive towards her daughter. The patient's daughter believed she could not provide the level of care the patient needed. She has a history of schizophrenia since her early 20s. She has been conserved in the past and has had numerous prior psychiatric hospitalizations. Assessment: What happened this shift: Pt was sleeping during shift change. Pt is very reluctant to care and only allows for her VS to be taken and medication administration. She does not allow this loan underwriter to perform physical assessment but does answer questions appropriately. Pt does question the medication and states that there should be something else given to offset the side effects of the medications she is taking. She quickly changes the subject and goes on talking about how "no one wants to cut these whiskers off my face". Pt does state that she is looking forward to going home tomorrow. Pt remains isolative for the rest of the evening and only came out of her room for a short period of time before going back to sleep. S/I, H/I: None reported or observed. A/VH: None reported or observed. Sleep: see sleep assessment ADL's: Independent Group attendance: none during restaurant shift leader Were Meds taken: Yes Any med S/E: None reported or observed. Mental Status Exam Appearance: Clean, appropriate Eye contact: Direct Behavior: isolative, questioning Speech: normal rhythm, soft, responds only to questions Mood: happy to discharge Affect: Blunted Thought process: disorganized Thought Content: being discharged tomorrow and having the right medications Cognition: A/O x 3 Insight: Poor Judgment: Poor Interventions PRN's used: none Therapeutic interventions: 1:1 therapeutic assessment, maintained safe therapeutic milieu, provided active listening with positive reinforcement, provided medication administration/education/monitoring as needed; encouraged to go to groups and participate; Q15 safety checks. Restraints/seclusion/emergency medication: N/A Justification of Continued Inpatient Treatment: Continued therapeutic support and medication management needed to provide stabilization, prevent decompensation, and improve coping mechanisms decreasing risk to patient and re-admittance. Patient is to return to living with daughter.
[2019-06-27] MEDS ORDERED: OLAN15TA20 PO (07:17)
[2019-06-27] MEDS ORDERED: ZOLP5TAB8 PO (07:17)
[2019-06-27] MEDS ORDERED: OXCA300O5 PO (07:17)
[2019-06-27] MEDS ORDERED: LEVO25TA7 PO (07:17)
[2019-06-27] MEDS ORDERED: FAMO20TA8 PO (07:17)
[2019-06-27] MEDS ORDERED: ATOR10TA PO (07:17)
[2019-06-27] MEDS: atorvastatin 10mg tablet PO SCH (07:57)
[2019-06-27] MEDS: oxcarbazepine 150mg tablet PO SCH (07:57)
[2019-06-27] MEDS: famotidine 20mg tablet PO SCH (07:58)
[2019-06-27] MEDS: levoTHYROXINE 25mcg tablet PO SCH (07:58)
[2019-06-27] MEDS: loratadine/pseudoephedrine TAB.SR.12Hour PO SCH (07:58)
[2019-06-27] MEDS: emollient combination-Eucerin 250 ML LOTION TP SCH (08:00)
--- NOTE | 2019-06-27 10:28 | NUR ---
NURSING DISCHARGE NOTE Patient discharged off unit at 1002. Patient accompanied by [employer] and will be transported to her daughters home in [place]. All valuables are provided back to patient. Instructions for followup med appointments provided to patient. Patient allowed time for questions and denies having any. Patient states that she stayed on the unit because she needed adjustments made to her medication regimen. She states that she has improved since admit and denies any issues her mood. MRSA swab collected and taken to lab. Patient is not under any acute physical or emotional distress. Nicotine replacement is not offered because patient does not smoke.
== END 2019-06-27 10:16 | disposition home or self-care (01) | DRG 885 ==
LOC: EEVIPCON → ADULT MH 13:15
PROVIDERS: ADMIT Psychiatry & Neurology Psychiatry; ATTEND Psychiatry & Neurology Psychiatry
DX: F25.0 Schizoaffective disorder, bipolar type (principal); E89.0 Postprocedural hypothyroidism; E78.5 Hyperlipidemia, unspecified; K21.9 Gastro-esophageal reflux disease without esophagitis; Z80.9 Family history of malignant neoplasm, unspecified
CPT/HCPCS: 36415; 80053; 80061; 83036; 84443; 85025; 87081; J3490; Q0163